=== PATIENT | female | born 1945 | race American Indian/Alaskan Native ===

== ENCOUNTER 2016-06-01 12:23 | Emergency (ER) | payer MEDICARE ==
[2016-06-01 12:41] VITALS: BP 96/58
--- NOTE | 2016-06-02 00:38 | ED Elopement Review ---
ED Pt Elopement review - Call Back decision Pt Call Back Decision: No action required
== END 2016-06-01 12:40 | disposition left against medical advice (07) ==
LOC: ED 12:23
DX: R07.9 Chest pain, unspecified (principal); Z53.21 Procedure and treatment not carried out due to patient leaving prior to being seen by health care provider
CPT/HCPCS: 93005; 93010

== ENCOUNTER 2016-09-07 11:32 | Inpatient (IN) | payer MEDICARE ==
[2016-09-07 13:17] LABS: Basophils % (Auto) 1.1 % (0.0-1.8); Eosinophils % (Auto) 1.2 % (0.0-4.3); Hematocrit 44.3 % (30.3-42.9); Hemoglobin 14.1 gm/dl (10.1-14.3); Mean Corpuscular HGB Conc 32 % (30-34); Mean Corpuscular Hemoglobin 31 pg (28-32); Mean Corpuscular Volume 99 fl (79-97); Platelet Count 236 K/mm3 (140-440); Red Blood Count 4.49 M/mm3 (3.65-5.03); Red Cell Distribution Width 18.9 % (13.2-15.2); White Blood Count 6.7 K/mm3 (4.5-11.0)
[2016-09-07 13:27] LABS: INR 0.97 (0.87-1.13)
--- NOTE | 2016-09-07 13:30 | XRay Report ---
Single view chest: Compared to 11/11/15. History: Hypotension. Findings: Normal cardiomediastinal silhouette. Trachea is midline. Scarring right lower lobe. No consolidation or pleural effusion. Impression: No acute lung changes. No interval change.
[2016-09-07 13:39] LABS: Creatine Kinase MB 1.6 ng/mL (0.0-4.0)
[2016-09-07 13:43] LABS: Alanine Aminotransferase 21 units/L (7-56); Albumin 4.4 g/dL (3.9-5); Albumin/Globulin Ratio 1.2 %; Alkaline Phosphatase 82 units/L (35-129)
[2016-09-07 13:44] LABS: Bilirubin,Direct < 0.2 mg/dL (0-0.2)
--- NOTE | 2016-09-07 13:52 | Admit Criteria Form ---
Admission Criteria Documentation: GENERAL ADMISSION CRITERIA (Place 'X' for any and all applicable criteria): Admission is indicated for ANY ONE of the following: [ X]I. Hemodynamic instability as indicated by ANY ONE of the following(1)(2 )(3)(4)(5): [X ]a) Vital sign abnormality not readily corrected by appropriate treatment within 12 to 24 hours indicated by ANY ONE of the following: [X ]i) Hypotension [ ]ii) Symptomatic Tachycardia unresponsive to treatment (eg , analgesia, fluids, sedation as indicated) [ ]iii) Orthostatic vital sign changes unresponsive to treatment (eg, fluids) [X ]b) Vital sign abnormality that is severe indicated by ANY ONE of the following: [X ]i) Inadequate perfusion indicated by ANY ONE of the following: [ X]1) Lactic acidosis (greater than 2 mmol/L) [ ]2) New abnormal capillary refill (greater than 3 seconds) [ ]3) Other metabolic acidosis (arterial pH less than 7.35) not otherwise explained [ ]4) Reduced urine output [ ]5) Altered mental status [ ]6) Myocardial Ischemia [ ]v) Mean arterial pressure[A] less than 60 mm Hg [ ]vi) Mean arterial pressure[A] less than 70 mm Hg after 30 minutes of appropriate treatment (eg, fluid resuscitation) [ ]vii) IV inotropic or vasopressor medication required to maintain adequate blood pressure or perfusion [ ]viii) Sustained heart rate greater than 120 beats per minute in adult or child 6 years or older[B]] [ ]II. Hypertension requiring inpatient treatment as indicated by ANY ONE of the following(6)(7)(8): [ ]a) SBP greater than 220 mm Hg or DBP greater than 120 mm Hg despite treatment [ ]b) SBP greater than 140 mm Hg or DBP greater than 100 mm Hg with evidence of acute end organ damage as indicated by ANY ONE of the following: [ ]i) Encephalopathy [ ]ii) Acute renal failure as indicated by new onset of ANY ONE of the following(9)(10)(11)(12)(13): [ ]1) A 3-fold rise in serum creatinine from baseline [ ]2) Serum creatinine greater than 4 mg/dL ( 354 micromoles/L) with acute rise greater than 0.5 mg/dL (44.2 micromoles/L) [ ]3) Reduction of more than 75% in estimated glomerular filtration rate from baseline [ ]4) Estimated glomerular filtration rate less than 35 mL/min/1.73m2 (0.59 mL/sec/1.73m2) in child up to 18 years of age [ ]5) Cessation of urine output indicated by ALL of the following: [ ]A. Adequate volume status [ ]B. Inadequate urine output as indicated by ANY ONE of the following: [ ]a. Urine output less than 0.3 mL/kg/hr for 24 hours [ ]b. Anuria (urine output less than 0.1 mL/kg/hr) for 12 hours [ ]iii) Aortic dissection [ ]iv) Myocardial ischemia [ ]v) Left ventricular heart failure [ ]vi) Retinal hemorrhage [ ]vii) Other significant finding [ ]c) Hypertension in child requiring inpatient treatment as indicated by ALL of the following(14)(15)(16): [ ]i) Outpatient treatment not effective, not available, or not appropriate [ ]ii) SBP or DBP greater than 95th percentile for age [ ]iii) Evidence of acute end organ damage as indicated by ANY ONE of the following: [ ]1) Altered mental status [ ]2) Acute renal failure as indicated by new onset of ANY ONE of the following(9)(10)(11)(12)(13): [ ]A. A 3-fold rise in serum creatinine from baseline [ ]B. Serum creatinine greater than 4 mg/dL (354 micromoles/L) with acute rise greater than 0.5 mg/dL (44.2 micromoles/L) [ ]C. Reduction of more than 75% in estimated glomerular filtration rate from baseline [ ]D. Estimated glomerular filtration rate less than 35 mL/min/1.73m2 (0.59 mL/sec/1.73m2)in child up to 18 years of age [ ]E. Cessation of urine output indicated by ALL of the following: [ ]a. Adequate volume status [ ]b. Inadequate urine output as indicated by ANY ONE of the following: [ ]1) Urine output less than 0.3 mL/kg/hr for 24 hours [ ]2) Anuria (urine output less than 0.1 mL/kg/hr) for 12 hours [ ]3) Severe headache [ ]4) Visual disturbance [ ]5) Retinal hemorrhage [ ]6) Other significant finding [ ]III. Acute cardiac or peripheral ischemia as indicated by ANY ONE of the following: [ ]a) Acute coronary syndrome(17)(18) [ ]b) Acute peripheral ischemia (eg, pulseless, cool, mottled, or cyanotic extremity)(19) [ ]IV. Cardiac arrhythmias or findings of immediate concern indicated by ANY ONE of the following(20)(21): [ ]a) Heart rhythms that are inherently dangerous or unstable indicated by ANY ONE of the following(22)(23)(24): [ ]i) Resuscitated ventricular fibrillation or cardiac arrest [ ]ii) Ventricular escape rhythm [ ]iii) Sustained ventricular tachycardia (30 seconds or more of ventricular rhythm at greater than 100 beats per minute) [ ]iv) Nonsustained ventricular tachycardia and ANY ONE of the following: [ ]1) Suspected cardiac ischemia as cause or consequence of ventricular tachycardia [ ]2) In setting of acute myocarditis [ ]b) Unstable cardiac conduction defects indicated by ANY ONE of the following(24)(25)(26): [ ]i) Type II second-degree atrioventricular block [ ]ii) Third-degree atrioventricular block [ ]iii) New-onset left bundle branch block with suspected myocardial ischemia [ ]c) Any heart rhythm and ANY ONE of the following(22)(23)(27)(28)( 29): [ ] i) Continuous long-term ECG monitoring needed (eg, initiation of drug requiring monitoring for more than 24 hours) [ ] ii) Patient has automatic implanted cardioverter defibrillator that is repeatedly firing, malfunctioning, or in need of immediate adjustment of settings beyond the scope of ambulatory or observation care. [ ]d) Heart rhythms of concern due to ANY ONE of the following: [ ]i) Hypotension [ ]ii) Respiratory distress [ ]iii) Association with other significant symptoms (eg, bradycardia with syncope or ongoing dizziness, supraventricular tachycardia with chest pain) (27)(28) (30) [ ] V. Severe heart failure as indicated by ANY ONE of the following ( 31)(32): [ ]a) Respiratory distress [ ]b) Hypotension [ ]c) Anasarca (refractory to outpatient therapy) [ ]d) Cardiac arrhythmias of immediate concern [ ]e) Myocardial ischemia [ ]. Respiratory abnormalities, including ANY ONE of the following(33)(34) (35)(36): [ ]a) Respiratory rate greater than 30 breaths per minute unresponsive to treatment [A] [ ]b) New saturation of arterial oxygen less than 90% [ ]c) New partial pressure of carbon dioxide greater than 44 mm Hg ( 5.9 kPa) [ ]d) Supplemental oxygen or respiratory treatments needed that are new or not performable at other levels of care [ ]e) New-onset cyanosis [ ]f) Inability to protect airway [ ]g) Chronic lung disease with severe deterioration (not responsive to emergency and observation care treatment as appropriate) as indicated by ANY ONE of the following(34)(36 ): [ ]i) SaO2 5% below baseline in patient with chronic hypoxemia [ ]ii) New requirement for supplemental oxygen to keep SaO2 at baseline or acceptable level [ ]iii) Required supplemental oxygen performable only in acute inpatient setting [ ]iv) Severe airflow or ventilation abnormalities [ ]v) Previously mobile patient unable to walk between rooms [ ]vi Inability to eat or sleep due to dyspnea [ ]vii) Rapid rate of exacerbation onset [ ]viii) Altered mental status ]VII. Severe airflow or ventilation abnormalities (not responsive to emergency and observation care treatment as appropriate) as indicated by ANY ONE of the following(33)(34)(35)(37): [ ]a) PCO2 greater than 42 mm Hg (5.6 kPa) and pH less than 7.35 (new ) [ ]b) Documented PCO2 increased more than 5 mm Hg (0.7 kPa) from disease baseline [ ]c) Airflow measurements [B] less than 60% of previous best or predicted (eg, peak expiratory flow rate less than 300 L/minute) despite intensive emergent treatment [C] [ ]d) Required respiratory treatments that are performable only in acute inpatient setting [ ]VIII. Impending or actual respiratory arrest ( Also use Respiratory Failure GRG for severe respiratory disease and long-term mechanical ventilation patients) [ ]IX. Neurologic abnormalities, including ANY ONE of the following: [ ]a) New findings that suggest ANY ONE of the following: [ ]i) SHAKER TENDER infection(38) [ ]ii) Cerebral bleeding, ischemia, or vasospasm(39)(40) [ ]iii) Increased intracranial pressure, hydrocephalus, or cerebral edema(41)(42)(43) [ ]iv) Spinal cord injury(44) [ ]b) Uncontrolled seizures(45) [ ]c) New-onset coma (eg, Ghazala coma scale score less than 9) or unexplained abnormal mental status (eg, Ghazala coma scale score less than 14) [D](41)(46)(47) [ ]X. New-onset severe neurologic findings requiring inpatient care; examples include(42)(48)(49): [ ]a) Papilledema [ ]b) Cerebral edema [ ]c) Mass effect on CT scan [ ]XI. Suspected acute intra-abdominal process with peritoneal signs, abdominal mass, or similar findings (50)(51)(52) [ ]XII. Severe physiologic disorder remaining after emergency or observation level care (as appropriate) as indicated by ANY ONE of the following (53): [ ]a) Significant dehydration [ ]b) Diabetic ketoacidosis [ ]c) Hyperglycemic hyperosmolar state (eg, osmolality greater than 320 mOsm/kg (mmol/kg) [ ]d) Hypoglycemia [ ]e) Other (new) acid-base disorder with pH less than 7.35 or greater than 7.5(54) [ ]f) Thyroid storm (55) [ ]g) Myxedema coma (55) [ ]XIII. Abdominal abnormalities with ANY ONE of the following(56)(57): [ ]a) Absent bowel sounds with complete ileus [ ]b) Signs of intestinal obstruction or peritonitis [E] [ ]c) Nausea and vomiting that cannot be controlled with outpatient or observation care [ ]XIV. Acute renal failure as indicated by new onset of ANY ONE of the following(9)(10)(11)(12)(13): [ ]a) A 3-fold rise in serum creatinine from baseline [ ]b) Serum creatinine greater than 4 mg/dL (354 micromoles/L) with acute rise greater than 0.5 mg/dL (44.2 micromoles/L) [ ]c) Reduction of more than 75% in estimated glomerular filtration rate from baseline [ ]d) Estimated glomerular filtration rate less than 35 mL/min/ 1.73m2 (0.59 mL/sec/1.73m2) in child up to 18 years of age [ ]e) Cessation of urine output indicated by ALL of the following: [ ]i) Adequate volume status [ ]ii) Inadequate urine output as indicated by ANY ONE of the following: [ ]1) Urine output less than 0.3 mL/kg/hr for 24 hours [ ]2) Anuria (urine output less than 0.1 mL/kg/hr) for 12 hours [ ]XV. Significant uremic complications as indicated by ANY ONE of the following(58)(59)(60): [ ]a) Outpatient therapy is ineffective or not feasible for ANY ONE of the following: [ ]i) Severe heart failure [ ]ii) Severehypertension [ ]iii) Pleural effusion [ ]iv) Pericarditis or pericardial effusion [ ]b) Cardiac arrhythmias of immediate concern [ ]c) Intractable nausea or vomiting [ ]d) Recurrent seizures [ ]e) Encephalopathy [ ]f) Bleeding abnormalities (eg, platelet dysfunction) with active (eg, gastrointestinal) bleeding [ ]g) Dialysis indicated before long-term access or ambulatory arrangements can be made [ ]h) Significant metabolic or electrolyte abnormalities (eg, severe acidosis or hyperkalemia) [ ]XVI. High fever or other high-risk infection situation as indicated by ANY ONE of the following(61)(62)(63)(64): [ ]a) Outpatient and observation care antimicrobial treatment unavailable, not effective, or not appropriate [ ]b) Documented bacteremia [ ]c) Temperature greater than 40.5 degrees C (104.9 degrees F) ( oral) [ ]d) Temperature greater than 39.5 degrees C (103.1 degrees F) ( oral) or less than 36 degrees C (96.8 degrees F) (rectal) that does not respond to e treatment and observation care [ ] XVII. Temperature less than 95 degrees F (35 degrees C)(rectal)(65) [ ] XVIII. Severe nutritional abnormalities as indicated by ALL of the following (66)(67): [ ]a) Inability to tolerate or establish sufficient oral or other enteral nutrition in outpatient setting [ ]b) Parenteral nutrition regimen need that must be implemented on inpatient basis [ ] XIX. Severe electrolyte abnormalities indicated by ALL of the following(68) (69)(70): [ ]a) Electrolytes and associated findings are not as expected for patient baseline or acceptable treatment effects. [ ]b) Severe abnormalities indicated by ANY ONE of the following: [ ]i) Sodium less than 130 mEq/L (mmol/L) (new) [ ]ii)Sodium less than 135 mEq/L (mmol/L) with ANY ONE of the following: [ ]1) Uncorrectable (to near normal or chronic baseline) after trial of outpatient and emergency treatment [ ]2) Altered mental status [ ]3) Seizures [ ]4) Severe medical etiology requiring inpatient management (eg, heart failure, hypovolemia) [ ]iii) Sodium greater than 155 mEq/L (mmol/L) [ ]iv) Sodium greater than 150 mEq/L (mmol/L) with ANY ONE of the following: [ ]1) Uncorrectable (to near normal or chronic baseline) with outpatient and emergency treatment [ ]2) Altered mental status [ ]3) Seizures [ ]4) Severe medical etiology (eg, hypovolemia, diabetes insipidus) [ ]v) Potassium less than 2.5 mEq/L (mmol/L) despite outpatient and emergency treatment [ ]vi) Potassium less than 3 mEq/L (mmol/L) with ANY ONE of the following: [ ]1) Weakness [ ]2) Cardiac abnormality (eg, arrhythmia, conduction disturbance) [ ]3) Cardiac ischemia [ ]4) Ileus [ ]5) Ongoing medical cause requiring inpatient management (eg, acute renal wasting or SIADH) [ ]6) Other severe symptoms [ ]vii) Potassium greater than 6.5 mEq/L (mmol/L) [ ]viii) Potassium greater than 5 mEq/L (mmol/L) with ANY ONE of the following: [ ]1) Uncorrectable (to near normal or chronic baseline) with outpatient and emergency treatment [ ]2) Severe ECG findings [F] [ ]3) Acute worsening of renal failure (creatinine greater than 2.5 mg/dL (221 micromoles/L) or significant elevation for age and size) [ ]4) Severe weakness [ ]5) Severe medical etiology (eg, hemolysis, infection, drug overdose) [ ]ix) Calcium less than 7 mg/dL (1.75 mmol/L) despite outpatient and emergency treatment (72) [ ]x) Calcium less than 8 mg/dL (2 mmol/L) with significant symptoms or findings; examples include(72): [ ]1) Altered mental status [ ]2) Muscle spasms [ ]3) Seizures [ ]4) Breathing difficulty [ ]5) Cardiac abnormality (eg, arrhythmia or conduction disturbance) [ ]xi) Calcium greater than 14 mg/dL (3.5 mmol/L)(72) [ ]xii) Calcium greater than 12 mg/dL (3 mmol/L) with ANY ONE of the following(72): [ ]1) Uncorrectable (to near normal or chronic baseline) with outpatient and emergency treatment [ ]2) Significant dehydration or hypovolemia as indicated by ALL of the following(70)(73)(74): [ ]A. Not resolved with initial treatments [ ]B. Clinically significant dehydration as indicated by ANY ONE of the following: [ ]a. Vomiting refractory to outpatient treatment (ie, precluding oral rehydration) [ ]b. Inability to drink [ ]c. Hypernatremia or other electrolyte abnormality unable to be corrected with outpatient and emergency treatment [ ]d. Failure to remain hydrated with outpatient therapy [ ]e. Reduced urine output [ ]f. Hypotension [ ]g. Serious cause for dehydration requiring acute hospitalization (eg, bowel obstruction, increased intracranial pressure, infectious cause) [ ]h. Child with ANY ONE of the following(75): [ ]1) Severe abdominal tenderness [ ]2) Adequate care not available at home [ ]3) Severe dehydration ( greater than 9% loss of body weight) [ ]4) Significant symptoms or findings; examples include: [ ]A. Altered mental status [ ]B. Cardiac abnormality (eg, arrhythmia, conduction disturbance) [ ]C. Malignant etiology requiring inpatient treatment [ ]xiii) Phosphorus less than 1 mg/dL (0.32 mmol/L) [ ]xiv) Phosphorus less than 1.5 mg/dL (0.48 mmol/L) with ANY ONE of the following: [ ]1) Patient unresponsive to outpatient and emergency treatment [ ]2) Significant symptoms or findings; examples include: [ ]A. Weakness [ ]B. Altered mental status [ ]C. Breathing difficulty [ ]D. Seizures [ ]E. Rhabdomyolysis [ ]xv) Phosphorus greater than 10 mg/dL (3.2 mmol/L) [ ]xvi) Phosphorus greater than 4.5 mg/dL (1.45 mmol/L) (new) with ANY ONE of the following: [ ]1) Severe medical etiology (eg, crush injury, acute renal failure) [ ]2) Associated hypocalcemia with significant findings; examples include: [ ]A. Neurologic symptoms [ ]B. Altered mental status [ ]C. Muscle spasms [ ]D. Seizures [ ]E. Breathing difficulty [ ]F. Cardiac abnormality (eg, arrhythmia, conduction disturbance) [ ]xvii) Magnesium less than 1 mg/dL (0.41 mmol/L) [ ]xviii) Magnesium less than 1.5 mg/dL (0.62 mmol/L) with ANY ONE of the following: [ ]1) Patient unresponsive to outpatient and emergency treatment [ ]2) Associated hypocalcemia with significant findings; examples include: [ ]A. Altered mental status [ ]B. Muscle spasms [ ]C. Seizures [ ]D. Breathing difficulty [ ]E. Cardiac abnormality (eg, arrhythmia , conduction disturbance) [ ]3) Associated hypokalemia (potassium less than 3 mEq/L (mmol/L)) with risk of arrhythmia [ ]xix) Magnesium greater than 4 mEq/L (2 mmol/L) [ ]xx) Magnesium greater than 2.5 mEq/L (1.25 mmol/L) with significant symptoms or findings; examples include: [ ]1) Weakness [ ]2) Altered mental status [ ]3) Cardiac abnormality (eg, arrhythmia, conduction disturbance) [ ]4) Breathing difficulty [ ]5) Severe medical etiology (eg, renal failure, hypovolemia) [ ]xxi) Uric acid greater than 20 mg/dL (1190 micromoles/L)(76) [ ]xxii) Uric acid greater than 8 mg/dL (476 micromoles/L) with significant symptoms or findings of tumor lysis syndrome; examples include(76): [ ]1) Creatinine greater than 1.5 times upper limit of normal [ ]2) Cardiac abnormality (eg, arrhythmia, conduction disturbance) [ ]3) Seizure [ ]XX. Acute blood loss causing significant abnormality as indicated by ANY ONE of the following(77)(78): [ ]a) Hemoglobin less than 10 g/dL (100 g/L) (not baseline) [ ]b) Hematocrit less than 30% (0.30) (not baseline) [ ]c) Repeat hematocrit decreased more than 2% (0.02) [ ]d) Uncontrolled bleeding [ ]XXI. Severe anemia indicated by ANY ONE of the following(78)(79): [ ]a) Altered mental status [ ]b) Chest pain [ ]c) Exertional dyspnea [ ]d) Syncope [ ]e) Other findings suggesting inadequate perfusion [ ]f) Treatment with transfusion or volume replacement is ineffective at resolving ANY ONE of the following [G]: [ ]i) Tachycardia for age [ ]ii) Orthostatic vital sign changes as indicated by ANY ONE of the following(80): [ ]1) Fall in SBP of 20 mm Hg or more 1 to 3 minutes after patient sits or stands from recumbent position [ ]2) Fall in DBP of 10 mm Hg or more 1 to 3 minutes after patient sits or stands from recumbent position [ ]XXII. High-risk low platelet count as indicated by ANY ONE of the following( 81)(82): [ ]a) Severe or life-threatening bleeding (eg, intracranial, major gastrointestinal, or extensive mucosal bleeding), with any reduced platelet count [ ]b) Platelet count less than 20,000/mm3 (20 x109/L) with any active bleeding [ ]c) Platelet count less than 10,000/mm3 (10 x109/L) with minor purpura or petechiae [ ]d) Platelet count less than 5000/mm3 (5 x109/L) [ ]e) Low platelet count with hemolytic anemia [ ]XXIII. Disseminated intravascular coagulation(77)(83) [ ]XXIV. Severe adverse drug or systemic toxin reaction requiring inpatient treatment; examples include(84)(85): [ ]a) Serotonin syndrome(86) [ ]b) Neuroleptic malignant syndrome(86) [ ]c) Cholinergic syndrome with severe symptoms (eg, bronchorrhea, weakness, mental status changes, seizures) [ ]d) Sympathetic syndrome with severe symptoms (eg, seizures, mental status changes, cardiac dysrhythmias) [ ]e) Anticholinergic syndrome [ ]XXV. Severe pain requiring acute inpatient management as indicated by ALL of the following (87)(88)(89): [ ]a) Continuous or frequent (eg, every 2 to 4 hours) parenteral analgesics required [H] [ ]b) Rapid improvement expected from treatment or acute intervention (eg, surgery, anesthesia procedure) [ ]XXVI.Severe behavioral health issues judged unmanageable at a lower level of care (eg, residential) in a patient who is ANY ONE of the following(91) [ ]a) Acutely suicidal [ ]b) A danger to self (eg, self-mutilating or suicidal behavior) [ ]c) A danger to others (eg, assaultive or homicidal behavior) [ ]d) Incapacitated because of grave disability (eg, inability to provide for self at lower level of care) (92) [ ]XXVII. Inpatient monitoring needed; examples include(1)(3)(87)(93)(94)(95)(96 ): [ ]a) Vital signs, neurologic signs, or vascular checks more frequently than every 4 hours [ ]b) Cardiac or respiratory monitoring beyond the scope (eg, over 24 hours) of observation care [ ]c) Pulmonary artery catheter monitoring [ ]d) Suspected compartment syndrome(97) (98) [ ]e) Cerebral bleeding, hydrocephalus, or vasospasm monitoring [ ]f) Increased intracranial pressure or cerebral edema monitoring [ ]g) monitoring [ ]XXVIII. Treatment requiring inpatient care; examples include: [ ]a) IV fluid to replace significant ongoing losses (greater than 3 L/m2 per day)(53) [ ]b) High concentration oxygen (greater than 40%)(33)(99)(100) [ ]c) Frequent respiratory therapy (more frequently than every 4 hours) to maintain airflow rates greater than 60% of baseline(33)(99)(100) [ ]d) Epidural analgesia(87) [ ]e) IV anticoagulation, vasoactive, or antiarrhythmic medication(19 )(23) [ ]f) Acute thrombolytics (generally require 24 hours of observation )(101)(102) [ ]XXIX. Emergency procedures needed; examples include: [ ]a) Emergency inpatient surgery [ ]b) Temporary pacemaker placement(103) [ ]c) Chest tube placement with active evacuation (eg, suction, drainage)(104) [ ]d) Emergent cardioversion(105) [ ]e) Emergent cardiac or vascular procedures (eg, cardiac catheterization, angioplasty) (17)(18) [ ]f) Emergent dialysis access placement and institution(10)(106) [ ]g) Emergent pericardiocentesis(107) [ ]h) Emergent plasmapheresis or leukapheresis(83) [ ]i) Emergent tracheostomy The original [employer] content created by [employer] has been revised. The portions of the content which have been revised are identified through the use of italic text or in bold, and [facility] has neither reviewed nor approved the modified material. All other unmodified content is copyright [employer]. Please see references footnoted in the original [employer] edition 2016 Admission Criteria Met: Yes
[2016-09-07 14:02] LABS: BUN/Creatinine Ratio 4.83; Calcium 8.9 mg/dL (8.4-10.2)
[2016-09-07 14:22] LABS: Chloride 83.8 mmol/L (98-107); Potassium 3.5 mmol/L (3.6-5.0)
[2016-09-07] MEDS ORDERED: SODIUM BICARBONATE IV ONE (14:58)
--- NOTE | 2016-09-07 15:07 | Emergency Department Report ---
ED General Adult HPI - General Chief complaint: Chest Pain Stated complaint: STEMI Time Seen by Provider: 09/07/16 11:39 Source: patient, EMS Mode of arrival: Stretcher Limitations: Other - History of Present Illness Initial comments: The patient was sent from the dialysis clinic for evaluation of hypotension. Today is her routine dialysis today. She presented to the clinic she states without any symptoms of illness. She denies weakness, dizziness or any type of orthostasis. She denies fever or chills. She states that her blood pressure is usually low. She has a history of an ileostomy due to ulcerative colitis many years ago. Otherwise she denies any ongoing medical problems other than her chronic kidney disease. She does not know precisely what caused her kidney failure. She is not taking any medicines at all she states. -: hour(s) Severity scale (0 -10): 0 - Related Data Home Medications Medication Instructions Recorded Confirmed Last Taken Calcium Acetate 2,001 mg PO TID 09/07/16 09/07/16 Unknown Ferrous Sulfate [Feosol] 325 mg PO BID 09/07/16 09/07/16 Unknown Potassium Chloride [Klor-Con] 20 meq PO DAILY 09/07/16 09/07/16 Unknown traZODone [Desyrel] 50 mg PO QHS 09/07/16 09/07/16 Unknown Previous Rx's Medication Instructions Recorded Last Taken Type Cholecalciferol Vit D3 [Vitamin D3] 1,000 unit PO DAILY #30 tablet 11/25/15 Unknown Rx Fludrocortisone [Florinef] 0.1 mg PO BID #60 tablet 11/25/15 Unknown Rx Midodrine [Proamatine] 10 mg PO BID #60 mo 11/25/15 Unknown Rx Allergies Allergy/AdvReac Type Severity Reaction Status Date / Time Barbiturates Allergy Hives Verified 11/22/15 18:22 Iodine and Iodide Containing Allergy Hives Verified 11/22/15 18:22 Produc cosmo Allergy Swelling Verified 11/22/15 18:22 penicillin Allergy Swelling Verified 11/22/15 18:22 HORSES Allergy Swelling Uncoded 11/22/15 18:22 CATS AdvReac Unknown Uncoded 11/22/15 18:22 ED Review of Systems ROS: Stated complaint: STEMI Other details as noted in HPI Constitutional: denies: chills, fever Eyes: denies: eye pain, eye discharge, vision change ENT: denies: ear pain, throat pain Respiratory: denies: cough, shortness of breath, wheezing Cardiovascular: denies: chest pain, palpitations Endocrine: no symptoms reported Gastrointestinal: denies: abdominal pain, nausea, diarrhea Genitourinary: denies: urgency, dysuria, discharge Musculoskeletal: denies: back pain, joint swelling, arthralgia Skin: denies: rash, lesions Neurological: denies: headache, weakness, paresthesias Psychiatric: denies: anxiety, depression Hematological/Lymphatic: denies: easy bleeding, easy bruising ED Past Medical Hx - Past Medical History Hx Hypertension: Yes Hx Congestive Heart Failure: Yes Hx Renal Disease: Yes Hx Kidney Stones: Yes Hx Asthma: Yes Hx COPD: Yes Hx HIV: No Additional medical history: ileostomy, Crohn's versus ulcerative colitis, hypotension - Surgical History Past Surgical History?: Yes Additional Surgical History: ileostomy - Social History Smoking Status: Never Smoker Substance Use Type: None - Medications Home Medications: Home Medications Medication Instructions Recorded Confirmed Last Taken Type Cholecalciferol Vit D3 [Vitamin D3] 1,000 unit PO DAILY #30 tablet 11/25/1505/22 Unknown Rx Fludrocortisone [Florinef] 0.1 mg PO BID #60 tablet 11/25/15 09/07/16 Unknown Rx Midodrine [Proamatine] 10 mg PO BID #60 mo 11/25/15 09/07/16 Unknown Rx Calcium Acetate 2,001 mg PO TID 09/07/16 09/07/16 Unknown History Ferrous Sulfate [Feosol] 325 mg PO BID 09/07/16 09/07/16 Unknown History Potassium Chloride [Klor-Con] 20 meq PO DAILY 09/07/16 09/07/16 Unknown History traZODone [Desyrel] 50 mg PO QHS 09/07/16 09/07/16 Unknown History ED Physical Exam - General Limitations: Other General appearance: alert, in no apparent distress - Head Head exam: Present: atraumatic, normocephalic - Eye Eye exam: Present: normal appearance, other (conjunctiva did appear somewhat pale). Absent: scleral icterus - ENT ENT exam: Present: mucous membranes moist - Neck Neck exam: Present: normal inspection - Respiratory Respiratory exam: Present: normal lung sounds bilaterally. Absent: respiratory distress - Cardiovascular Cardiovascular Exam: Present: regular rate, normal rhythm. Absent: systolic murmur, diastolic murmur, rubs, gallop - GI/Abdominal GI/Abdominal exam: Present: soft, normal bowel sounds. Absent: distended, tenderness, guarding, rebound, rigid - Extremities Exam Extremities exam: Present: normal inspection, other (extremities are warm and pulses are present) - Back Exam Back exam: Present: normal inspection - Neurological Exam Neurological exam: Present: alert, oriented X3, CN II-XII intact. Absent: motor sensory deficit - Psychiatric Psychiatric exam: Present: normal affect, normal mood - Skin Skin exam: Present: warm, dry, intact, normal color. Absent: rash ED Course Vital Signs 09/07/16 09/07/16 09/07/16 11:37 11:41 11:44 Temperature 98.2 F Pulse Rate 84 92 H Respiratory 18 16 Rate Blood Pressure 69/48 Blood Pressure 69/48 [Right] O2 Sat by Pulse 98 97 98 Oximetry 09/07/16 09/07/16 09/07/16 11:51 12:00 12:08 Temperature Pulse Rate 93 H 88 Respiratory 23 16 18 Rate Blood Pressure 88/45 89/50 Blood Pressure [Right] O2 Sat by Pulse 99 97 Oximetry 09/07/16 14:20 Temperature Pulse Rate 86 Respiratory 16 Rate Blood Pressure Blood Pressure 90/50 [Right] O2 Sat by Pulse 99 Oximetry - Reevaluation(s) Reevaluation #1: 09/07/16 15:45 Patient was given aliquots of normal saline. I did find that her blood pressure was higher in her leg than her arm. Measured in her leg 89 systolic and in her arm 69 systolic. The patient was found to have a significant metabolic acidosis and hyponatremia. She was additionally given one amp of bicarbonate. Her chest x- ray was dry. She is given additional saline. On reexamination the patient remains completely asymptomatic. Her case has been reviewed with Dr. Conde who will be admitting her to the hospitalist service. A consult was called with Dr. Sales. ED Medical Decision Making - Lab Data Result diagrams: 09/07/16 12:51 09/07/16 14:49 Laboratory Results - last 24 hr 09/07/16 09/07/16 09/07/16 12:30 12:51 12:51 WBC 6.7 RBC 4.49 Hgb 14.1 Hct 44.3 H MCV 99 H MCH 31 MCHC 32 RDW 18.9 H Plt Count 236 Lymph % (Auto) 20.3 Bent % (Auto) 4.7 Eos % (Auto) 1.2 Baso % (Auto) 1.1 Lymph # 1.4 Bent # 0.3 Eos # 0.1 Baso # 0.1 Seg Neutrophils % 72.7 H Seg Neutrophils # 4.9 PT INR APTT Sodium 129 L Potassium 3.5 L Chloride 83.8 L Carbon Dioxide 11 L Anion Gap 38 BUN 57 H Creatinine 11.8 H Estimated GFR 4 BUN/Creatinine Ratio 4.83 Glucose 89 Lactic Acid Calcium 8.9 Phosphorus Total Bilirubin Direct Bilirubin AST ALT Alkaline Phosphatase Total Creatine Kinase CK-MB (CK-2) CK-MB (CK-2) Rel Index Troponin T 0.031 H NT-Pro-B Natriuret Pep Total Protein Albumin Albumin/Globulin Ratio Triglycerides 170 H Cholesterol 166 LDL Cholesterol Direct 62 HDL Cholesterol 70 H Cholesterol/HDL Ratio 2.37 Blood Type B POSITIVE Antibody Screen TNR BOBBY Antibody Screen Negative 09/07/16 09/07/16 09/07/16 12:51 12:51 12:51 WBC RBC Hgb Hct MCV MCH MCHC RDW Plt Count Lymph % (Auto) Bent % (Auto) Eos % (Auto) Baso % (Auto) Lymph # Bent # Eos # Baso # Seg Neutrophils % Seg Neutrophils # PT 12.8 INR 0.97 APTT 32.0 Sodium Potassium Chloride Carbon Dioxide Anion Gap BUN Creatinine Estimated GFR BUN/Creatinine Ratio Glucose Lactic Acid 2.50 H* Calcium Phosphorus Total Bilirubin 0.30 Direct Bilirubin < 0.2 AST 23 ALT 21 Alkaline Phosphatase 82 Total Creatine Kinase CK-MB (CK-2) CK-MB (CK-2) Rel Index Troponin T NT-Pro-B Natriuret Pep 639.4 Total Protein 8.0 Albumin 4.4 Albumin/Globulin Ratio 1.2 Triglycerides Cholesterol LDL Cholesterol Direct HDL Cholesterol Cholesterol/HDL Ratio Blood Type Antibody Screen BOBBY Antibody Screen 09/07/16 09/07/16 09/07/16 12:51 14:49 14:49 WBC RBC Hgb Hct MCV MCH MCHC RDW Plt Count Lymph % (Auto) Bent % (Auto) Eos % (Auto) Baso % (Auto) Lymph # Bent # Eos # Baso # Seg Neutrophils % Seg Neutrophils # PT INR APTT Sodium 131 L Potassium 3.1 L Chloride 86.1 L Carbon Dioxide 16 L Anion Gap 32 BUN 58 H Creatinine 12.2 H Estimated GFR 4 BUN/Creatinine Ratio 4.75 Glucose 109 H Lactic Acid Calcium 8.8 Phosphorus 9.70 H Total Bilirubin Direct Bilirubin AST ALT Alkaline Phosphatase Total Creatine Kinase 41 CK-MB (CK-2) 1.6 CK-MB (CK-2) Rel Index 3.9 Troponin T 0.032 H NT-Pro-B Natriuret Pep Total Protein Albumin Albumin/Globulin Ratio Triglycerides Cholesterol LDL Cholesterol Direct HDL Cholesterol Cholesterol/HDL Ratio Blood Type Antibody Screen BOBBY Antibody Screen - EKG Data EKG shows normal: sinus rhythm, axis, intervals, QRS complexes Rate: normal - EKG Data Interpretation: other (there is J-point elevation in the inferolateral leads. There is no evidence of reciprocal changes. This EKG is somewhat variable but it is not consistent with STEMI.) - Radiology Data interpreted by me: Chest x-ray shows no acute process Critical Care Time: Yes Critical care time in (mins) excluding proc time.: 45 Critical care attestation.: If time is entered above; I have spent that time in minutes in the direct care of this critically ill patient, excluding procedure time. ED Disposition Clinical Impression: Metabolic acidosis, Encounter for hemodialysis, End-stage renal disease on hemodialysis, Ileostomy in place Hypotension Qualifiers: Hypotension type: unspecified hypotension type Qualified Code(s): I95.9 - Hypotension, unspecified Disposition: OP ADMIT IP TO THIS HOSP Is pt being admited?: Yes Condition: Stable Referrals: PRIMARY CARE, [Primary Care Provider] - 3-5 Days
[2016-09-07 15:21] LABS: BUN/Creatinine Ratio 4.75; Calcium 8.8 mg/dL (8.4-10.2); Chloride 86.1 mmol/L (98-107); Phosphorous 9.7 mg/dL (2.5-4.5); Potassium 3.1 mmol/L (3.6-5.0)
[2016-09-07] MEDS ORDERED: NACL 0.9% 250ML 250 ML IV ONE (15:40)
[2016-09-07] MEDS ORDERED: K-DUR PO ONE ×2 (15:47→16:41)
[2016-09-07] MEDS ORDERED: NACL 0.9% 250ML 250 ML ONE (17:02)
--- NOTE | 2016-09-07 19:48 | Consultation ---
History of Present Illness - Reason for Consult Consult date: 09/07/16 end stage renal disease - History of Present Illness Mrs. Heller is a 70yo with ESRD on HD MWF who presented to the ED due to hypotension. She has a history of chronic hypotension. However, upon arriving to her outpatient dialysis clinic, pre treatment vitals were notable for BP 67/ 45. She was sent to the ED for evaluation. She has no complaints at present. Medications reviewed, and she reports that she has not taken Midodrine or Florinef in some time. Past History Past Medical History: ESRD, other (chronic hypotension, Shy Drager, Crohn's disease s/p colectomy) Past Surgical History: Other (Colectomy; ileostomy; right partial nephrectomy) Social history: no significant social history Family history: no significant family history Medications and Allergies Allergies Allergy/AdvReac Type Severity Reaction Status Date / Time Barbiturates Allergy Hives Verified 11/22/15 18:22 Iodine and Iodide Containing Allergy Hives Verified 11/22/15 18:22 Produc cosmo Allergy Swelling Verified 11/22/15 18:22 penicillin Allergy Swelling Verified 11/22/15 18:22 HORSES Allergy Swelling Uncoded 11/22/15 18:22 CATS AdvReac Unknown Uncoded 11/22/15 18:22 Home Medications Medication Instructions Recorded Confirmed Last Taken Type Cholecalciferol Vit D3 [Vitamin D3] 1,000 unit PO DAILY #30 tablet 11/25/1505/22 Unknown Rx Fludrocortisone [Florinef] 0.1 mg PO BID #60 tablet 11/25/15 09/07/16 Unknown Rx Midodrine [Proamatine] 10 mg PO BID #60 mo 11/25/15 09/07/16 Unknown Rx Calcium Acetate 2,001 mg PO TID 09/07/16 09/07/16 Unknown History Ferrous Sulfate [Feosol] 325 mg PO BID 09/07/16 09/07/16 Unknown History Potassium Chloride [Klor-Con] 20 meq PO DAILY 09/07/16 09/07/16 Unknown History traZODone [Desyrel] 50 mg PO QHS 09/07/16 09/07/16 Unknown History Exam - Vital Signs Vital signs: Vital Signs Pulse Ox 98 09/07/16 11:37 - General Appearance General appearance: chronically ill, frail EENT: ATNC Respiratory: Clear to Ascultation Heart: regular, S1S2 Gastrointestinal: Absent: tenderness Integumentary: no rash Neurologic: alert and oriented x3 Musculoskeletal: Present: other (no edema) Psychiatric: cooperative Results - Lab Results 09/07/16 12:51 09/07/16 14:49 Most recent lab results Calcium 8.8 mg/dL (8.4-10.2) 09/07/16 14:49 Phosphorus 9.70 mg/dL (2.5-4.5) H 09/07/16 14:49 Assessment and Plan Impression * End-stage renal disease on maintenance hemodialysis * Metabolic acidosis * Hypokalemia * Chronic hypotension * History of renal cell cancer s/p partial nephrectomy Recommendations * Will hold HD today as patient with hypotension SBP 60s * Hemodiaylsis tomorrow pending improved hemodynamic stability - no UF * Resume home meds: Florinef, Midodrine, PhosLo and KDur * Dose medications for renal function * Epogen goal 10-12 * Lucille prn patient request - 5mg ordered
[2016-09-07] MEDS ORDERED: NACL 0.9% 100 ML IV PRN (20:07)
[2016-09-07] MEDS ORDERED: AMBIEN PO PRN (21:09)
[2016-09-07] MEDS: SODIUM BICARBONATE PO SCH (22:38)
[2016-09-07] MEDS: PROAMATINE PO SCH (22:39)
[2016-09-07] MEDS: FLORINEF PO SCH (22:42)
--- NOTE | 2016-09-08 03:23 | History and Physical Report ---
History of Present Illness Date of examination: 09/07/16 Date of admission: 09/07/16 15:23 Chief complaint: 09/07/16 History of present illness: The patient was sent from the dialysis clinic for evaluation of hypotension. Pam takes Midodrine to keep her BP up and also Florinef.Today is her routine dialysis today. She presented to the clinic she states without any symptoms of illness. She denies weakness, dizziness or any type of orthostasis. She denies fever or chills. She states that her blood pressure is usually low. She has a history of an ileostomy due to ulcerative colitis many years ago. Otherwise she denies any ongoing medical problems other than her chronic kidney disease. She does not know precisely what caused her kidney failure. She is not taking any medicines at all she states. -: hour(s) Severity scale (0 -10): 0 - Related Data Home Medications Medication Instructions Recorded Confirmed Last Taken Calcium Acetate 2,001 mg PO TID 09/07/16 09/07/16 Unknown Ferrous Sulfate [Feosol] 325 mg PO BID 09/07/16 09/07/16 Unknown Potassium Chloride [Klor-Con] 20 meq PO DAILY 09/07/16 09/07/16 Unknown traZODone [Desyrel] 50 mg PO QHS 09/07/16 09/07/16 Unknown Previous Rx's Medication Instructions Recorded Last Taken Type Cholecalciferol Vit D3 [Vitamin D3] 1,000 unit PO DAILY #30 tablet 11/25/15 Unknown Rx Fludrocortisone [Florinef] 0.1 mg PO BID #60 tablet 11/25/15 Unknown Rx Midodrine [Proamatine] 10 mg PO BID #60 mo 11/25/15 Unknown Rx Allergies Allergy/AdvReac Type Severity Reaction Status Date / Time Barbiturates Allergy Hives Verified 11/22/15 18:22 Iodine and Iodide Containing Allergy Hives Verified 11/22/15 18:22 Produc cosmo Allergy Swelling Verified 11/22/15 18:22 penicillin Allergy Swelling Verified 11/22/15 18:22 HORSES Allergy Swelling Uncoded 11/22/15 18:22 CATS AdvReac Unknown Uncoded 11/22/15 18:22 ED Review of Systems ROS: Stated complaint: STEMI Other details as noted in HPI Constitutional: denies: chills, fever Eyes: denies: eye pain, eye discharge, vision change ENT: denies: ear pain, throat pain Respiratory: denies: cough, shortness of breath, wheezing Cardiovascular: denies: chest pain, palpitations Endocrine: no symptoms reported Gastrointestinal: denies: abdominal pain, nausea, diarrhea Genitourinary: denies: urgency, dysuria, discharge Musculoskeletal: denies: back pain, joint swelling, arthralgia Skin: denies: rash, lesions Neurological: denies: headache, weakness, paresthesias Psychiatric: denies: anxiety, depression Hematological/Lymphatic: denies: easy bleeding, easy bruising ED Past Medical Hx - Past Medical History Hx Hypertension: Yes Hx Congestive Heart Failure: Yes Hx Renal Disease: Yes Hx Kidney Stones: Yes Hx Asthma: Yes Hx COPD: Yes Hx HIV: No Additional medical history: ileostomy, Crohn's versus ulcerative colitis, hypotension - Surgical History Past Surgical History?: Yes Additional Surgical History: ileostomy - Social History Smoking Status: Never Smoker Substance Use Type: None - Medications Home Medications: Home Medications Medication Instructions Recorded Confirmed Last Taken Type Cholecalciferol Vit D3 [Vitamin D3] 1,000 unit PO DAILY #30 tablet 11/25/1505/22 Unknown Rx Fludrocortisone [Florinef] 0.1 mg PO BID #60 tablet 11/25/15 09/07/16 Unknown Rx Midodrine [Proamatine] 10 mg PO BID #60 mo 11/25/15 09/07/16 Unknown Rx Calcium Acetate 2,001 mg PO TID 09/07/16 09/07/16 Unknown History Ferrous Sulfate [Feosol] 325 mg PO BID 09/07/16 09/07/16 Unknown History Potassium Chloride [Klor-Con] 20 meq PO DAILY 09/07/16 09/07/16 Unknown History traZODone [Desyrel] 50 mg PO QHS 09/07/16 09/07/16 Unknown History Past History Past Medical History: ESRD, other (chronic hypotension, Shy Drager, Crohn's disease s/p colectomy) Past Surgical History: Other (Colectomy; ileostomy; right partial nephrectomy) Social history: no significant social history Family history: no significant family history Medications and Allergies Allergies Allergy/AdvReac Type Severity Reaction Status Date / Time Barbiturates Allergy Hives Verified 11/22/15 18:22 Iodine and Iodide Containing Allergy Hives Verified 11/22/15 18:22 Produc cosmo Allergy Swelling Verified 11/22/15 18:22 penicillin Allergy Swelling Verified 11/22/15 18:22 HORSES Allergy Swelling Uncoded 11/22/15 18:22 CATS AdvReac Unknown Uncoded 11/22/15 18:22 Home Medications Medication Instructions Recorded Confirmed Last Taken Type Cholecalciferol Vit D3 [Vitamin D3] 1,000 unit PO DAILY #30 tablet 11/25/1505/22 Unknown Rx Fludrocortisone [Florinef] 0.1 mg PO BID #60 tablet 11/25/15 09/07/16 Unknown Rx Midodrine [Proamatine] 10 mg PO BID #60 mo 11/25/15 09/07/16 Unknown Rx Calcium Acetate 2,001 mg PO TID 09/07/16 09/07/16 Unknown History Ferrous Sulfate [Feosol] 325 mg PO BID 09/07/16 09/07/16 Unknown History Potassium Chloride [Klor-Con] 20 meq PO DAILY 09/07/16 09/07/16 Unknown History traZODone [Desyrel] 50 mg PO QHS 09/07/16 09/07/16 Unknown History Active Meds: Active Medications Calcium Acetate (Phoslo) 2,001 mg PO TID [facility] Fludrocortisone Acetate (Florinef) 0.1 mg PO BID [facility] Last Admin: 09/07/16 22:42 Dose: 0.1 mg Sodium Chloride (Nacl 0.9%) 100 mls @ 999 mls/hr IV PHAN PRN PRN Reason: Hypotension Midodrine (Proamatine) 10 mg PO BID [facility] Last Admin: 09/07/16 22:39 Dose: 10 mg Potassium Chloride (K-Dur) 20 meq PO QDAY [facility] Sodium Bicarbonate (Sodium Bicarbonate) 650 mg PO BID [facility] Last Admin: 09/07/16 22:38 Dose: 650 mg Zolpidem Tartrate (Ambien) 5 mg PO QHS PRN PRN Reason: Sleep Last Admin: 09/07/16 22:38 Dose: 5 mg Exam - Physical Exam Narrative exam: Very Comfortable - Constitutional Vitals: Temp Pulse Resp BP Pulse Ox 98.6 F 88 21 87/50 98 09/08/16 01:38 09/08/16 01:38 09/08/16 01:38 09/08/16 01:38 09/08/16 01:38 General appearance: Present: no acute distress, well-nourished - EENT Eyes: Present: PERRL ENT: hearing intact, clear oral mucosa - Neck Neck: Present: supple, normal ROM - Respiratory Respiratory effort: normal Respiratory: bilateral: CTA - Cardiovascular Heart rate: 78 Rhythm: regular Heart Sounds: Present: S1 & S2. Absent: rub, click - Extremities Extremities: pulses symmetrical, No edema Peripheral Pulses: within normal limits - Abdominal General gastrointestinal: Present: soft, non-tender, non-distended, normal bowel sounds Female genitourinary: Present: normal - Integumentary Integumentary: Present: clear, warm, dry - Musculoskeletal Musculoskeletal: gait normal, strength equal bilaterally - Psychiatric Psychiatric: appropriate mood/affect, intact judgment & insight - Neurologic Neurologic: CNII-XII intact, moves all extremities, gait normal - Allied Health Allied health notes reviewed: nursing Results - Labs CBC & Chem 7: 09/07/16 12:51 09/07/16 14:49 Labs: Laboratory Last Values WBC 6.7 K/mm3 (4.5-11.0) 09/07/16 12:51 RBC 4.49 M/mm3 (3.65-5.03) 09/07/16 12:51 Hgb 14.1 gm/dl (10.1-14.3) 09/07/16 12:51 Hct 44.3 % (30.3-42.9) H 09/07/16 12:51 MCV 99 fl (79-97) H 09/07/16 12:51 MCH 31 pg (28-32) 09/07/16 12:51 MCHC 32 % (30-34) 09/07/16 12:51 RDW 18.9 % (13.2-15.2) H 09/07/16 12:51 Plt Count 236 K/mm3 (140-440) 09/07/16 12:51 Lymph % (Auto) 20.3 % (13.4-35.0) 09/07/16 12:51 Benzie % (Auto) 4.7 % (0.0-7.3) 09/07/16 12:51 Eos % (Auto) 1.2 % (0.0-4.3) 09/07/16 12:51 Baso % (Auto) 1.1 % (0.0-1.8) 09/07/16 12:51 Lymph # 1.4 K/mm3 (1.2-5.4) 09/07/16 12:51 Benzie # 0.3 K/mm3 (0.0-0.8) 09/07/16 12:51 Eos # 0.1 K/mm3 (0.0-0.4) 09/07/16 12:51 Baso # 0.1 K/mm3 (0.0-0.1) 09/07/16 12:51 Seg Neutrophils % 72.7 % (40.0-70.0) H 09/07/16 12:51 Seg Neutrophils # 4.9 K/mm3 (1.8-7.7) 09/07/16 12:51 PT 12.8 Sec. (12.2-14.9) 09/07/16 12:51 INR 0.97 (0.87-1.13) 09/07/16 12:51 APTT 32.0 Sec. (24.2-36.6) 09/07/16 12:51 Sodium 131 mmol/L (137-145) L 09/07/16 14:49 Potassium 3.1 mmol/L (3.6-5.0) L 09/07/16 14:49 Chloride 86.1 mmol/L (98-107) L 09/07/16 14:49 Carbon Dioxide 16 mmol/L (22-30) L 09/07/16 14:49 Anion Gap 32 mmol/L 09/07/16 14:49 BUN 58 mg/dL (7-17) H 09/07/16 14:49 Creatinine 12.2 mg/dL (0.7-1.2) H 09/07/16 14:49 Estimated GFR 4 ml/min 09/07/16 14:49 BUN/Creatinine Ratio 4.75 % 09/07/16 14:49 Glucose 109 mg/dL (65-100) H 09/07/16 14:49 Lactic Acid 2.50 mmol/L (0.7-2.0) H* 09/07/16 12:51 Calcium 8.8 mg/dL (8.4-10.2) 09/07/16 14:49 Phosphorus 9.70 mg/dL (2.5-4.5) H 09/07/16 14:49 Total Bilirubin 0.30 mg/dL (0.1-1.2) 09/07/16 12:51 Direct Bilirubin < 0.2 mg/dL (0-0.2) 09/07/16 12:51 AST 23 units/L (5-40) 09/07/16 12:51 ALT 21 units/L (7-56) 09/07/16 12:51 Alkaline Phosphatase 82 units/L (35-129) 09/07/16 12:51 Total Creatine Kinase 41 units/L (30-135) 09/07/16 12:51 CK-MB (CK-2) 1.6 ng/mL (0.0-4.0) 09/07/16 12:51 CK-MB (CK-2) Rel Index 3.9 (0-4) 09/07/16 12:51 Troponin T 0.035 ng/mL (0.00-0.029) H 09/07/16 21:13 NT-Pro-B Natriuret Pep 639.4 pg/mL (0-900) 09/07/16 12:51 Total Protein 8.0 g/dL (6.3-8.2) 09/07/16 12:51 Albumin 4.4 g/dL (3.9-5) 09/07/16 12:51 Albumin/Globulin Ratio 1.2 % 09/07/16 12:51 Triglycerides 170 mg/dL (2-149) H 09/07/16 12:51 Cholesterol 166 mg/dL (50-199) 09/07/16 12:51 LDL Cholesterol Direct 62 mg/dL (50-130) 09/07/16 12:51 HDL Cholesterol 70 mg/dL (40-59) H 09/07/16 12:51 Cholesterol/HDL Ratio 2.37 % 09/07/16 12:51 Blood Type B POSITIVE 09/07/16 12:30 Antibody Screen TNR 09/07/16 12:30 BOBBY Antibody Screen Negative 09/07/16 12:30 Assessment and Plan Advance Directives: Yes (FC) VTE prophylaxis?: Chemical Plan of care discussed with patient/family: Yes - Patient Problems (1) Hypotension Current Visit: Yes Status: Acute Qualifiers: Hypotension type: unspecified hypotension type Trimester: T Qualified Code(s): I95.9 - Hypotension, unspecified Plan to address problem: Probably sec to mineralocorticoid deficiency.Patient on florinef and Midodrine. Will iobserve for 24 hours and discharge. (2) Hypokalemia Onset Date: 11/11/15 Current Visit: No Status: Acute Plan to address problem: Supplemented (3) End-stage renal disease on hemodialysis Current Visit: Yes Status: Chronic Plan to address problem: Cont HD (4) Ileostomy in place Current Visit: Yes Status: Chronic (5) Metabolic acidosis Current Visit: Yes Status: Acute Plan to address problem: AG of 32.Inadequate HD (6) Malnutrition Current Visit: No Status: Chronic (7) DVT prophylaxis Current Visit: Yes Status: Acute (8) DVT prophylaxis Current Visit: Yes Status: Acute Plan to address problem: on Heparin
[2016-09-08] MEDS ORDERED: TYLENOL PO PRN (03:32)
[2016-09-08] MEDS ORDERED: ZOFRAN IV PRN (03:32)
[2016-09-08] MEDS ORDERED: MILK OF MAGNESIA PO PRN (03:32)
[2016-09-08] MEDS ORDERED: DULCOLAX PR PRN (03:32)
[2016-09-08] MEDS ORDERED: K-DUR PO ONE ×2 (03:36→06:00)
[2016-09-08 07:51] LABS: Basophils % (Auto) 0.8 % (0.0-1.8); Eosinophils % (Auto) 2.8 % (0.0-4.3); Hematocrit 39.8 % (30.3-42.9); Hemoglobin 13.1 gm/dl (10.1-14.3); Mean Corpuscular HGB Conc 33 % (30-34); Mean Corpuscular Hemoglobin 31 pg (28-32); Platelet Count 220 K/mm3 (140-440); Red Blood Count 4.24 M/mm3 (3.65-5.03); Red Cell Distribution Width 18.5 % (13.2-15.2); White Blood Count 5.6 K/mm3 (4.5-11.0)
[2016-09-08] MEDS ORDERED: PHOSLO PO SCH (08:00)
[2016-09-08 08:03] LABS: Albumin 4.2 g/dL (3.9-5); Albumin/Globulin Ratio 1.4 %; BUN/Creatinine Ratio 5.36; Bilirubin,Total 0.2 mg/dL (0.1-1.2); Calcium 8.1 mg/dL (8.4-10.2); Chloride 87.2 mmol/L (98-107); Potassium 3.6 mmol/L (3.6-5.0); Total Protein 7.1 g/dL (6.3-8.2)
[2016-09-08] MEDS: PHOSLO PO SCH ×2 (08:50→16:55)
[2016-09-08] MEDS: SODIUM BICARBONATE PO SCH (09:16)
[2016-09-08] MEDS: PROAMATINE PO SCH (09:17)
[2016-09-08] MEDS: FLORINEF PO SCH (09:18)
[2016-09-08 09:23] LABS: Mean Corpuscular Volume 95 fl (79-97)
[2016-09-08] MEDS ORDERED: K-DUR PO SCH (10:00)
[2016-09-08] MEDS ORDERED: PEPCID IV SCH (10:00)
[2016-09-08] MEDS ORDERED: FLORINEF PO SCH (10:00)
[2016-09-08] MEDS ORDERED: POTASSIUM CHLORIDE PO SCH (10:00)
[2016-09-08] MEDS ORDERED: FEOSOL PO SCH (10:00)
[2016-09-08] MEDS ORDERED: VITAMIN D3 PO SCH (10:00)
[2016-09-08] MEDS ORDERED: PROAMATINE PO SCH (10:00)
[2016-09-08] MEDS ORDERED: NACL 0.9 (PRIMING MACHINE ONLY DIALYSIS) MC ONE (11:35)
--- NOTE | 2016-09-08 12:47 | Progress Note ---
Assessment and Plan Impression * End-stage renal disease on maintenance hemodialysis * Metabolic acidosis * Hypokalemia * Chronic hypotension * History of renal cell cancer s/p partial nephrectomy Recommendations * HD today; no UF * Continue home meds - Florinef, Midodrine, PhosLo and KDur * Dose medications for renal function * Epogen goal 10-12 * Should be stable for d/c after HD today - please give patient rx for Florinef and Midodrine Subjective Date of service: 09/08/16 Interval history: Patient is feeling better today Objective - Vital Signs Vital signs: Vital Signs - 12hr 09/08/16 09/08/16 09/08/16 00:55 01:38 05:51 Temperature 98.6 F 98.6 F Pulse Rate 88 Pulse Rate [ 88 21 L Left] Respiratory 21 20 Rate Blood Pressure 87/50 82/40 [Left Arm] O2 Sat by Pulse 98 98 Oximetry 09/08/16 08:00 Temperature 98.1 F Pulse Rate Pulse Rate [ 92 H Left] Respiratory 20 Rate Blood Pressure 89/59 [Left Arm] O2 Sat by Pulse 97 Oximetry - General Appearance General appearance: well-developed, frail EENT: ATNC Respiratory: Present: Clear to Ascultation Cardiology: regular, S1S2 Gastrointestinal: normal, no tenderness, no distended Integumentary: no rash Musculoskeletal: other (no edema) - Lab 09/08/16 07:17 09/08/16 07:17 Most recent lab results Calcium 8.1 mg/dL (8.4-10.2) L 09/08/16 07:17 Phosphorus 9.70 mg/dL (2.5-4.5) H 09/07/16 14:49
--- NOTE | 2016-09-08 16:33 | Discharge Summary ---
Providers - Providers Date of Admission: 09/07/16 15:23 Date of discharge: 09/08/16 Attending physician: ELINA CARTAGENA 09/07/16 15:39 Consult to Physician [CONS] Urgent Consulting Provider: GABRIELA SINGH Reason For Exam: acidosis HD pt low b/p Notified:: paged Primary care physician: CONOR BECKMAN MD Hospitalization Condition: Stable Hospital course: Patient is 70-year-old woman history end-stage renal disease, Crohn's, hypotension on Midodrine and Florinef who presents from hemodialysis after worsening hypotension. There is a remote history of Shy-Drager's autonomic dysfunction but I don't see a resting tremors or over Parkinson's signs -Hypertension he autonomic dysfunction versus end-stage renal disease/ hemodialysis related -End Stage renal disease needing hemodialysis -Anemia of chronic disease Disposition: DC-01 TO HOME OR SELFCARE Time spent for discharge: 34 minutes Core Measure Documentation - Palliative Care Palliative Care/ Comfort Measures: Not Applicable - Core Measures Any of the following diagnoses?: none - VTE Discharge Requirements Deep Vein Thrombosis/Pulmonary Embolism Present on Admission: No Has pt received <5 days of overlap therapy or INR<2.0: No Anticoagulant overlap therapy prescribed at discharge: No Contraindication No Overlap Therapy order at DC: Not Indicated Exam - Physical Exam Narrative exam: GEN: WDWN, NAD, AWAKE, ALERT, ORIENTATED x 3 CVS: RRR, NORMAL S1S2 LUNGS/CHEST: CTA B, NORMAL CHEST EXPANSION B, GOOD AIR ENTRY B ABD: SOFT, NTND, GBS, NO REBOUND OR GUARDING EXT/SKIN: NO SIGNIFICANT EDEMA OR RASH MSK: FROM X 4 EXTREMITIES NEURO: CN 2-12 GROSSLY INTACT, NO new FOCAL DEFICITS PSY: CALM, makes very abrasive unprovoked statements such as, "how do you think I'm doing, what do you expect, I'm in a hospital!" - Constitutional Vitals: Temp Pulse Resp BP Pulse Ox 98.2 F 86 18 68/45 97 09/08/16 10:20 09/08/16 11:00 09/08/16 10:20 09/08/16 11:00 09/08/16 16:21 Plan Activity: other (no strenous activites until cleared by PCP. ) Diet: renal Follow up with: PRIMARY CAREMD [Primary Care Provider] - 3-5 Days Prescriptions: Zolpidem [Ambien] 5 mg PO QHS PRN #30 tablet PRN Reason: Sleep Fludrocortisone [Florinef] 0.1 mg PO BID #60 tablet Midodrine [Proamatine] 10 mg PO BID #60 tablet Sodium Bicarbonate 650 mg PO BID #60 tablet
[2016-09-08 19:03] VITALS: BP 77/51
[2016-09-08] MEDS ORDERED: DESYREL PO SCH (22:00)
== END 2016-09-08 18:40 | disposition home or self-care (01) | DRG 314 ==
LOC: ED 11:32 → 4A 15:23
PROVIDERS: ADMIT Internal Medicine; ATTEND Internal Medicine
PROC: 5A1D00Z (ICD-10-PCS; principal; 2016-06-12)
DX: I95.9 Hypotension, unspecified (principal); N18.6 End stage renal disease; K50.90 Crohn's disease, unspecified, without complications; I13.2 Hypertensive heart and chronic kidney disease with heart failure and with stage 5 chronic kidney disease, or end stage renal disease; E87.1 Hypo-osmolality and hyponatremia; E87.2 Acidosis; E46 Unspecified protein-calorie malnutrition; I50.9 Heart failure, unspecified; D63.8 Anemia in other chronic diseases classified elsewhere; J44.9 Chronic obstructive pulmonary disease, unspecified; F45.8 Other somatoform disorders; E87.6 Hypokalemia; Z88.0 Allergy status to penicillin; Z91.041 Radiographic dye allergy status; Z91.018 Allergy to other foods; Z87.442 Personal history of urinary calculi; Z68.20 Body mass index [BMI] 20.0-20.9, adult; Z85.528 Personal history of other malignant neoplasm of kidney; Z90.5 Acquired absence of kidney
CPT/HCPCS: 36415; 71010; 80048; 80053; 80061; 80074; 82140; 82550; 82553; 83880; 84100; 84484; 85025; 85610; 85730; 86850; 86900; 86901; 87040; 93005; 93010; 96374; 99291; J7030; J7050

== ENCOUNTER 2016-11-25 15:37 | Inpatient (IN) | payer MEDICARE ==
[2016-11-25 16:10] LABS: Basophils % (Auto) 0.9 % (0.0-1.8); Eosinophils % (Auto) 2.4 % (0.0-4.3); Hematocrit 29.8 % (30.3-42.9); Hemoglobin 9.9 gm/dl (10.1-14.3); Mean Corpuscular HGB Conc 33 % (30-34); Mean Corpuscular Hemoglobin 32 pg (28-32); Mean Corpuscular Volume 97 fl (79-97); Platelet Count 270 K/mm3 (140-440); Red Blood Count 3.06 M/mm3 (3.65-5.03); Red Cell Distribution Width 18.7 % (13.2-15.2); White Blood Count 6.7 K/mm3 (4.5-11.0)
[2016-11-25 16:31] LABS: BUN/Creatinine Ratio 1.86; Calcium 8.3 mg/dL (8.4-10.2)
[2016-11-25 16:38] LABS: Potassium 2.9 mmol/L (3.6-5.0)
--- NOTE | 2016-11-25 20:35 | Emergency Department Report ---
ED General Adult HPI - General Chief complaint: Medical Clearance Stated complaint: PORT CLOGGED Time Seen by Provider: 11/25/16 20:27 Source: patient, family, RN notes reviewed, old records reviewed Mode of arrival: Ambulatory Limitations: No Limitations - History of Present Illness Initial comments: This is a 72-year-old female, the patient is previously unknown to me. Has a past medical history of asthma, congestive heart failure, kidney stones, end- stage renal disease on dialysis. Patient is sent to the ER by her retail product demo specialist for left upper extremity clotted AV fistula. Patient typically gets dialysis Wednesday, Wednesday, Wednesday. Her last dialysis session was yesterday, and she reports that it was unremarkable. Patient denies headache, neck pain, chest pain, abdominal pain, shortness of breath, irritative/obstructive urinary symptoms. -: Gradual Location: left, upper extremity Severity scale (0 -10): 0 Consistency: constant Improves with: none Worsens with: none Associated Symptoms: denies other symptoms - Related Data Home Medications Medication Instructions Recorded Confirmed Last Taken Ferrous Sulfate [Feosol 325 MG tab] 325 mg PO BID 09/07/16 11/26/16 11/20/16 traZODone [Desyrel] 50 mg PO QHS 09/07/16 11/26/16 11/19/16 Previous Rx's Medication Instructions Recorded Last Taken Type Acetaminophen [Acetaminophen TAB] 325 mg PO Q4H PRN #30 tablet 09/08/16 Rx Sodium Bicarbonate 650 mg PO BID #60 tablet 09/08/16 11/20/16 Rx Zolpidem [Ambien] 5 mg PO QHS PRN #30 tablet 09/08/16 11/19/16 Rx Calcium Acetate 2,001 mg PO TID #90 capsule 11/25/16 Unknown Rx Cholecalciferol Vit D3 [Vitamin D3] 1,000 unit PO DAILY #30 tablet 11/25/16 Unknown Rx Fludrocortisone [Florinef] 0.1 mg PO BID #60 tablet 11/25/16 Unknown Rx Midodrine [Proamatine] 10 mg PO BID #60 tablet 11/25/16 Unknown Rx Sertraline [Zoloft] 25 mg PO QDAY #30 tablet 11/25/16 Unknown Rx oxyCODONE /ACETAMINOPHEN [Percocet 1 tab PO Q6H PRN #12 tablet 11/25/16 Unknown Rx 5/325 mg] Allergies Allergy/AdvReac Type Severity Reaction Status Date / Time Barbiturates Allergy Hives Verified 11/20/16 20:26 Iodine and Iodide Containing Allergy Hives Verified 11/20/16 20:26 Produc cosmo Allergy Swelling Verified 11/20/16 20:26 penicillin Allergy Swelling Verified 11/20/16 20:26 HORSES Allergy Swelling Uncoded 11/20/16 20:26 CATS AdvReac Unknown Uncoded 11/20/16 20:26 ED Review of Systems ROS: Stated complaint: PORT CLOGGED Other details as noted in HPI Constitutional: denies: fever Eyes: denies: vision change ENT: denies: epistaxis Respiratory: denies: cough Cardiovascular: denies: chest pain Gastrointestinal: denies: abdominal pain Genitourinary: as per HPI Musculoskeletal: myalgia Skin: denies: lesions Neurological: weakness (chronic) ED Past Medical Hx - Past Medical History Hx Hypertension: Yes Hx Heart Attack/AMI: No Hx Congestive Heart Failure: Yes Hx Renal Disease: Yes Hx Kidney Stones: Yes Hx Asthma: Yes Hx COPD: Yes Hx HIV: No Additional medical history: ileostomy, Crohn's versus ulcerative colitis, hypotension - Surgical History Additional Surgical History: ileostomy - Social History Smoking Status: Never Smoker - Medications Home Medications: Home Medications Medication Instructions Recorded Confirmed Last Taken Type Ferrous Sulfate [Feosol 325 MG tab] 325 mg PO BID 09/07/16 11/26/16 11/20/16 History traZODone [Desyrel] 50 mg PO QHS 09/07/16 11/26/16 11/19/16 History Acetaminophen [Acetaminophen TAB] 325 mg PO Q4H PRN #30 tablet 09/08/1611/20/16 Rx Sodium Bicarbonate 650 mg PO BID #60 tablet 09/08/16 11/26/16 11/20/16 Rx Zolpidem [Ambien] 5 mg PO QHS PRN #30 tablet 09/08/16 11/26/16 11/19/16 Rx Calcium Acetate 2,001 mg PO TID #90 capsule 11/25/16 11/26/16 Unknown Rx Cholecalciferol Vit D3 [Vitamin D3] 1,000 unit PO DAILY #30 tablet 11/25/16 Unknown Rx Fludrocortisone [Florinef] 0.1 mg PO BID #60 tablet 11/25/16 11/26/16 Unknown Rx Midodrine [Proamatine] 10 mg PO BID #60 tablet 11/25/16 11/26/16 Unknown Rx Sertraline [Zoloft] 25 mg PO QDAY #30 tablet 11/25/16 11/26/16 Unknown Rx oxyCODONE /ACETAMINOPHEN [Percocet 1 tab PO Q6H PRN #12 tablet 11/25/16 Unknown Rx 5/325 mg] ED Physical Exam - General Limitations: No Limitations General appearance: alert, in no apparent distress - Head Head exam: Present: atraumatic, normocephalic - Eye Eye exam: Present: normal appearance, EOMI. Absent: nystagmus - ENT ENT exam: Present: normal exam, normal orophraynx, mucous membranes moist, normal external ear exam - Neck Neck exam: Present: normal inspection, full ROM. Absent: tenderness, meningismus - Respiratory Respiratory exam: Present: normal lung sounds bilaterally. Absent: respiratory distress, wheezes, rales, rhonchi, stridor, chest wall tenderness, accessory muscle use, decreased breath sounds, prolonged expiratory - Cardiovascular Cardiovascular Exam: Present: regular rate, normal rhythm, normal heart sounds. Absent: bradycardia, tachycardia, irregular rhythm, systolic murmur, diastolic murmur, rubs, gallop - GI/Abdominal GI/Abdominal exam: Present: soft, normal bowel sounds. Absent: distended, tenderness, guarding, rebound, rigid, pulsatile mass - Extremities Exam Extremities exam: Present: normal inspection, normal capillary refill, other ( left upper extremity AV fistula is nontender, clot is appreciated, thrill is not appreciated.). Absent: pedal edema, joint swelling, calf tenderness - Back Exam Back exam: Present: normal inspection - Neurological Exam Neurological exam: Present: alert, oriented X3, other (Extraocular movements intact. Tongue midline. No facial droop. Facial sensation intact to light touch in the V1, V2, V3 distribution bilaterally. 5 and 5 strength in 4 extremities.. Sensation is intact to light touch in 4 extremities.). Absent: motor sensory deficit - Psychiatric Psychiatric exam: Present: agitated - Skin Skin exam: Present: warm, dry, intact, normal color. Absent: rash ED Course Vital Signs 11/25/16 11/25/16 11/25/16 15:42 19:10 21:00 Temperature 98.4 F Pulse Rate 106 H 104 H Respiratory 18 18 16 Rate Blood Pressure 99/62 Blood Pressure 99/62 100/56 [Right] O2 Sat by Pulse 99 100 99 Oximetry 11/25/16 11/26/16 23:00 01:30 Temperature 98.7 F 98.8 F Pulse Rate 94 H 99 H Respiratory 18 18 Rate Blood Pressure Blood Pressure 102/60 100/58 [Right] O2 Sat by Pulse 98 99 Oximetry ED Medical Decision Making - Lab Data Result diagrams: 11/25/16 16:02 11/25/16 16:02 Vital Signs 11/25/16 11/25/16 15:42 19:10 Temperature 98.4 F Pulse Rate 106 H Respiratory 18 18 Rate Blood Pressure 99/62 Blood Pressure 99/62 [Right] O2 Sat by Pulse 99 100 Oximetry Lab Results 11/25/16 11/25/16 11/25/16 Range/Units 16:02 16:02 18:11 WBC 6.7 (4.5-11.0) K/mm3 RBC 3.06 L (3.65-5.03) M/mm3 Hgb 9.9 L (10.1-14.3) gm/dl Hct 29.8 L (30.3-42.9) % MCV 97 (79-97) fl MCH 32 (28-32) pg MCHC 33 (30-34) % RDW 18.7 H (13.2-15.2) % Plt Count 270 (140-440) K/mm3 Lymph % (Auto) 13.2 L (13.4-35.0) % Rosebud % (Auto) 6.3 (0.0-7.3) % Eos % (Auto) 2.4 (0.0-4.3) % Baso % (Auto) 0.9 (0.0-1.8) % Lymph # 0.9 L (1.2-5.4) K/mm3 Rosebud # 0.4 (0.0-0.8) K/mm3 Eos # 0.2 (0.0-0.4) K/mm3 Baso # 0.1 (0.0-0.1) K/mm3 Seg Neutrophils % 77.2 H (40.0-70.0) % Seg Neutrophils # 5.2 (1.8-7.7) K/mm3 Sodium 132 L (137-145) mmol/L Potassium 2.9 L* D (3.6-5.0) mmol/L Chloride 86.0 L (98-107) mmol/L Carbon Dioxide 21 L (22-30) mmol/L Anion Gap 28 mmol/L BUN 14 (7-17) mg/dL Creatinine 7.5 H (0.7-1.2) mg/dL Estimated GFR 6 ml/min BUN/Creatinine Ratio 1.86 % Glucose 190 H (65-100) mg/dL Calcium 8.3 L (8.4-10.2) mg/dL Troponin T 0.010 < 0.010 (0.00-0.029) ng/mL - Medical Decision Making Differential diagnosis: Nonfunctioning left-sided AV fistula, chronic renal insufficiency Assessment and plan: 71-year-old female who is asymptomatic with a nonfunctioning AV fistula. Has chronic hypotension. Case discussed with vascular surgery, Dr. Cornelius Maguire, and nephrology, Dr. Nava. They recommended admission for correction and possible fistulogram. Case is presented to the Hospital physician, Dr. Barrett, who accepts the patient to his service. Patient has no complaints at this time. Critical care attestation.: If time is entered above; I have spent that time in minutes in the direct care of this critically ill patient, excluding procedure time. ED Disposition Clinical Impression: AV fistula occlusion, End stage renal disease on dialysis Disposition: OP ADMIT IP TO THIS HOSP Is pt being admited?: Yes Condition: Good
[2016-11-25] MEDS ORDERED: TYLENOL PO PRN (23:09)
[2016-11-25] MEDS ORDERED: ZOFRAN IV PRN (23:09)
[2016-11-25] MEDS ORDERED: MORPHINE IV PRN (23:10)
[2016-11-25] MEDS ORDERED: RESTORIL PO PRN (23:11)
[2016-11-26] MEDS ORDERED: KCL 10MEQ/100ML 10 MEQ/100 ML BAG IV ONE ×2 (01:44→02:05)
[2016-11-26] MEDS ORDERED: NACL 0.9% 1000 ML 1,000 ML ONE (01:59)
[2016-11-26] MEDS ORDERED: NACL 0.9% 1000 ML 1,000 ML IV ONE (02:00)
[2016-11-26] MEDS ORDERED: KCL 10MEQ/100ML 10 MEQ/100 ML BAG IV SCH (03:00)
--- NOTE | 2016-11-26 06:07 | History and Physical Report ---
CHIEF COMPLAINT: Clogging of the AV fistula in the left upper extremity. HISTORY OF PRESENT ILLNESS: The patient is a 71-year-old female with end-stage renal disease, having dialysis on Mondays, Wednesdays and Fridays and went for dialysis, but was noted to have blockage in the AV fistula in the left upper extremity. There was no history of pain. No history of fever or chills. The patient was sent over by Nephrology for evaluation of the AV fistula. There is no history of shortness of breath or chest pain. PAST MEDICAL HISTORY: Pertinent for hypertension; congestive heart failure; end-stage renal disease, on dialysis; kidney stones; asthma; COPD and also the patient has past history of Crohn disease with ulcerative colitis as well as the ileostomy. PAST SURGICAL HISTORY: Pertinent for ileostomy and AV fistula placement in the left upper extremity. FAMILY HISTORY: Noncontributory. SOCIAL HISTORY: The patient does not smoke, does not drink alcohol and does not use illicit drugs. MEDICATIONS: The patient is on ferrous sulfate 325 mg by mouth twice daily, trazodone 50 mg at bedtime, Tylenol 325 mg by mouth every 4 hours as needed for fever and pain, sodium bicarbonate 650 mg by mouth twice daily, Ambien 5 mg by mouth at bedtime, calcium acetate 2001 mg by mouth 3 times daily, vitamin D3 1000 units by mouth daily, Florinef 0.1 mg p.o. b.i.d., midodrine 10 mg p.o. b.i.d., Zoloft 25 mg by mouth daily and Percocet 5/325 mg 1 by mouth every 6 hours as needed for pain. ALLERGIES: THE PATIENT IS ALLERGIC TO BARBITURATES, IODINE AND IODINE CONTAINING PRODUCTS AND ALSO VINNY. REVIEW OF SYSTEMS: CONSTITUTIONAL: There is no fever, no chills, no diaphoresis. HEENT: There is no headache or sore throat. CARDIOVASCULAR SYSTEM: There is no chest pain, orthopnea. RESPIRATORY SYSTEM: There is no shortness of breath or cough. GASTROINTESTINAL SYSTEM: There is no nausea, no vomiting, no abdominal pain, diarrhea or constipation. NEUROLOGICAL SYSTEM: There is no numbness, no dizziness, no altered mental status. MUSCULOSKELETAL SYSTEM: There is no joint pain or swelling. DERMATOLOGICAL SYSTEM: There is no skin rash or itching. GENITOURINARY SYSTEM: Denies dysuria, but no hematuria, no flank pain. Rest of system review is normal. PHYSICAL EXAMINATION: GENERAL: At the time of exam, the patient was found to be alert, oriented x 3 and not in acute distress. VITAL SIGNS: Shows temperature of 98.8 degrees Fahrenheit with pulse of 94, respirations 18, blood pressure of 102/60 and O2 sat of 98% on room air. HEENT: Showed pupils to be equal, round, reactive to light and accommodating. Extraocular muscles are intact. NECK: Supple with no JVD or carotid bruit. CARDIOVASCULAR SYSTEM: Showed first and second heart sounds with no gallops or murmurs. RESPIRATORY SYSTEM: Showed good air entry on both sides of the lung with no abnormal breath sounds. GASTROINTESTINAL SYSTEM: Show abdomen to be soft, nontender with no organomegaly or rigidity. NEUROLOGIC SYSTEM: Showed no focal deficit. MUSCULOSKELETAL SYSTEM: Show no joint swelling or tenderness. DERMATOLOGICAL SYSTEM: Show no skin rash, but has scar tissues on the left upper extremity briggs, the area of the dialysis AV fistula. GENITOURINARY: Show no costovertebral angle tenderness. PERTINENT LABORATORY AND IMAGING STUDIES: The patient has CBC done with normal white count, low hemoglobin of 9.9 and low hematocrit of 29.8 with CBC differential showing slight improve in segmented neutrophils of 77.2%. The patient's chemistry showed low sodium of 132 and very low potassium level of 2.9 and low chloride level of 86 and low CO2 of 21, normal BUN and high creatinine of 7.5, consistent with end-stage renal disease, on dialysis. The patient's glucose shows slight increase of 190, calcium level was slightly low with a value of . Cardiac enzymes show an unremarkable troponin level. DIAGNOSES: 1. Blocked left upper extremity dialysis arteriovenous fistula. 2. Hypokalemia. 3. Anemia. PLAN: The patient will be admitted to medical floor telemetry and will have IV KCl containing 10 mEq in 100 mL of normal saline to be given over 1 hour x 4 doses. The patient will remain n.p.o. for intervention by the vascular surgeon. The patient will have vascular surgical consult with Dr. Cornelius Maguire because of blocked AV fistula. The patient will also have Nephrology consult with Dr. Nava for management of the end-stage renal disease, on dialysis, and the patient will be on Tylenol 650 mg by mouth every 4 hours for fever, headache and will be on her home medications as shown in the medication reconciliation section. The patient will also be on IV morphine 2 mg every 4 hours as needed for pain, and would remain n.p.o. for intervention by the vascular surgeon in the morning. DVT prophylaxis will be through sequential compressive device and the patient's home medications will be reconciled and started. JOB# [id number] OCN/NTS
[2016-11-26] MEDS: PHOSLO PO SCH ×3 (08:40→18:25)
--- NOTE | 2016-11-26 09:30 | Consultation ---
History of Present Illness - History of Present Illness Thank you for the consultation patient was evaluated today. Source of information; patient himself current records were also reviewed History of presenting illness; Patient is a 71-year-old -[place] female who was recently admitted for evaluation of weakness shortness of breath and was also noted to be chronically hypotensive despite being on midodrine as well as fludrocortisone.. Patient was discharged yesterday and returned back abscess or fistula quit working and was noted to be clotted currently she is status post, declot procedure and access is working well She does not complain of any chest pain pressure or shortness of breath In previous admission I did start her on Zoloft due to issues with chronic depression that she had without any suicidal ideation and spells of anxiety. Patient is currently also on trazodone which can cause hypotension and will need to be discontinued Past medical history is significant for End-stage renal disease currently in maintenance dialysis Anemia and end-stage renal disease Chronic hypotension per patient depression Secondary hyperparathyroidism Allergies: barbiturate iodine iodide-containing product cosmo etc Social history:denies any history of alcohol drug tobacco use Family history:noncontributory for related disorder Review of system is positive for chronic hypotension depression without suicidal ideation clotted fistula Complete review of systems obtained pertinent positive above mother's review of systems negative Physical examination General: No acute distress HEENT: Oral mucosa moist no pharyngeal erythema no pallor or icterus no uremic order Neck: Supple no evidence of any thyromegaly trachea midline no JVD Chest: Clear to auscultation no crackles are also wheezes anteriorly Heart: Regular rate and rhythm S1-S2 heard no S3-S4 Abdomen: Soft nontender no renal bruit no CVA tenderness no suprapubic fullness no organomegaly Extremity: Minimal edema dry skin no peripheral cyanosis pulses palpable, her fistula in the left arm has good thrill and bruit Neurological: Alert awake follows command grossly nonfocal examination Back: Nontender thoracolumbar spine Musculoskeletal: No joint effusion noted Skin: No petechial rash/noted Assessment and plan 1.end-stage renal disease patient is currently in maintenance hemodialysis; she will need hemodialysis treatment tomorrow 2.hypokalemia consider higher potassium bath 3.chronic hypotension in a patient who is poorly compliant with fluid intake also is currently on trazodone which does cause orthostatic drop in blood pressure would discontinue 4.chronic depression and anxiety started on Zoloft patient appears to be doing better even though it was just started recently 5.history of hip fracture 6.patient has had complete cardiac workup by [facility] in the past Nature and issue of renal-related issues were discussed with patient, all questions were answered and simple Yi Patient does have good understanding about renal-related issues discussed with Dr. Corcoran we'll continue to follow and make recommendation from renal standpoint If you have any questions please feel free to contact me at [phone] Medications and Allergies Allergies Allergy/AdvReac Type Severity Reaction Status Date / Time Barbiturates Allergy Hives Verified 11/20/16 20:26 Iodine and Iodide Containing Allergy Hives Verified 11/20/16 20:26 Produc cosmo Allergy Swelling Verified 11/20/16 20:26 penicillin Allergy Swelling Verified 11/20/16 20:26 HORSES Allergy Swelling Uncoded 11/20/16 20:26 CATS AdvReac Unknown Uncoded 11/20/16 20:26 Home Medications Medication Instructions Recorded Confirmed Last Taken Type Ferrous Sulfate [Feosol 325 MG tab] 325 mg PO BID 09/07/16 11/26/16 11/20/16 History traZODone [Desyrel] 50 mg PO QHS 09/07/16 11/26/16 11/19/16 History Acetaminophen [Acetaminophen TAB] 325 mg PO Q4H PRN #30 tablet 09/08/1611/20/16 Rx Sodium Bicarbonate 650 mg PO BID #60 tablet 09/08/16 11/26/16 11/20/16 Rx Zolpidem [Ambien] 5 mg PO QHS PRN #30 tablet 09/08/16 11/26/16 11/19/16 Rx Calcium Acetate 2,001 mg PO TID #90 capsule 11/25/16 11/26/16 Unknown Rx Cholecalciferol Vit D3 [Vitamin D3] 1,000 unit PO DAILY #30 tablet 11/25/16 Unknown Rx Fludrocortisone [Florinef] 0.1 mg PO BID #60 tablet 11/25/16 11/26/16 Unknown Rx Midodrine [Proamatine] 10 mg PO BID #60 tablet 11/25/16 11/26/16 Unknown Rx Sertraline [Zoloft] 25 mg PO QDAY #30 tablet 11/25/16 11/26/16 Unknown Rx oxyCODONE /ACETAMINOPHEN [Percocet 1 tab PO Q6H PRN #12 tablet 11/25/16 Unknown Rx 5/325 mg] Active Meds: Active Medications Acetaminophen (Tylenol) 650 mg PO Q4H PRN PRN Reason: For Pain/Fever/Headache Calcium Acetate (Phoslo) 2,001 mg PO TIDWM [facility] Cholecalciferol (Vitamin D3) 1,000 unit PO DAILY [facility] Ferrous Sulfate (Feosol) 325 mg PO BID [facility] Fludrocortisone Acetate (Florinef) 0.1 mg PO BID [facility] Influenza Virus Vaccine Quadrival (Fluarix Quad [id number] Mos+)) 0.5 ml IM .ONCE ONE Stop: 11/27/16 12:01 Midodrine (Proamatine) 10 mg PO BID [facility] Morphine Sulfate (Morphine) 2 mg IV Q4H PRN PRN Reason: Pain, Moderate (4-6) Ondansetron HCl (Zofran) 4 mg IV Q8H PRN PRN Reason: Nausea And Vomiting Potassium Chloride (K-Dur) 40 meq PO ONCE ONE Stop: 11/26/16 10:01 Sertraline HCl (Zoloft) 25 mg PO QDAY [facility] Sodium Bicarbonate (Sodium Bicarbonate) 650 mg PO BID [facility] Temazepam (Restoril) 15 mg PO QHS PRN PRN Reason: Insomnia Trazodone HCl (Desyrel) 50 mg PO QHS [facility] Exam - Vital Signs Vital signs: Vital Signs Temp Pulse Resp BP Pulse Ox 98.4 F 106 H 18 99/62 99 11/25/16 15:42 11/25/16 15:42 11/25/16 15:42 11/25/16 15:42 11/25/16 15:42 Results - Lab Results 11/25/16 16:02 11/26/16 12:54 Most recent lab results Calcium 8.3 mg/dL (8.4-10.2) L 11/25/16 16:02
[2016-11-26] MEDS ORDERED: HEPARIN 10,000 UNITS/10 ML ONE (09:38)
[2016-11-26] MEDS ORDERED: HEPARIN/NS 5000 UNIT/500ML(CATH LAB) 1,000 ML IR ONE (09:38)
[2016-11-26] MEDS ORDERED: BENADRYL ONE (09:59)
[2016-11-26] MEDS ORDERED: K-DUR PO ONE ×2 (10:00→15:00)
[2016-11-26] MEDS ORDERED: PEPCID IV ONE (10:03)
[2016-11-26] MEDS ORDERED: VERSED ONE ×2 (10:08→10:56)
[2016-11-26] MEDS ORDERED: NACL 0.9% 250ML 250 ML ONE (10:08)
[2016-11-26] MEDS ORDERED: VANCOMYCIN/NS 1 GM/250 ML 1 GM/250 ML BAG IV ONE (10:30)
[2016-11-26] MEDS ORDERED: HEPARIN/NS 5000 UNIT/500ML(CATH LAB) 500 ML IR ONE (10:42)
[2016-11-26] MEDS: XYLOCAINE 2% INFILTRATI ONE ×2 (10:43→11:18)
[2016-11-26] MEDS: SUBLIMAZE ONE ×2 (10:44→11:19)
[2016-11-26] MEDS ORDERED: CATHFLO ONE (10:50)
[2016-11-26] MEDS ORDERED: WATER FOR INJ (PF) 10 ML ONE (10:50)
--- NOTE | 2016-11-26 11:50 | Progress Note ---
Assessment and Plan Assessment and plan: AV fistula occlusion. Patient for declotting per vascular surgery. ESRD. Continue hemodialysis per nephrology. Chronic hypotension. Continue Midodrine. History Interval history: No new issues overnight. Hospitalist Physical - Constitutional Vitals: Temp Pulse Resp BP Pulse Ox 98.1 F 76 18 96/48 98 11/26/16 09:30 11/26/16 09:30 11/26/16 09:30 11/26/16 09:30 11/26/16 09:30 General appearance: Present: no acute distress, well-nourished - EENT Eyes: Present: PERRL, EOM intact ENT: hearing intact, clear oral mucosa, dentition normal - Neck Neck: Present: supple, normal ROM - Respiratory Respiratory effort: normal Respiratory: bilateral: CTA - Cardiovascular Rhythm: regular Heart Sounds: Present: S1 & S2. Absent: gallop, rub - Extremities Extremities: no ischemia, No edema, Full ROM - Abdominal General gastrointestinal: soft, non-tender, non-distended, normal bowel sounds - Integumentary Integumentary: Present: clear, warm, dry - Neurologic Neurologic: CNII-XII intact, moves all extremities Results - Labs CBC & Chem 7: 11/25/16 16:02 11/25/16 16:02 Labs: Laboratory Last Values WBC 6.7 K/mm3 (4.5-11.0) 11/25/16 16:02 RBC 3.06 M/mm3 (3.65-5.03) L 11/25/16 16:02 Hgb 9.9 gm/dl (10.1-14.3) L 11/25/16 16:02 Hct 29.8 % (30.3-42.9) L 11/25/16 16:02 MCV 97 fl (79-97) 11/25/16 16:02 MCH 32 pg (28-32) 11/25/16 16:02 MCHC 33 % (30-34) 11/25/16 16:02 RDW 18.7 % (13.2-15.2) H 11/25/16 16:02 Plt Count 270 K/mm3 (140-440) 11/25/16 16:02 Lymph % (Auto) 13.2 % (13.4-35.0) L 11/25/16 16:02 [place] % (Auto) 6.3 % (0.0-7.3) 11/25/16 16:02 Eos % (Auto) 2.4 % (0.0-4.3) 11/25/16 16:02 Baso % (Auto) 0.9 % (0.0-1.8) 11/25/16 16:02 Lymph # 0.9 K/mm3 (1.2-5.4) L 11/25/16 16:02 [place] # 0.4 K/mm3 (0.0-0.8) 11/25/16 16:02 Eos # 0.2 K/mm3 (0.0-0.4) 11/25/16 16:02 Baso # 0.1 K/mm3 (0.0-0.1) 11/25/16 16:02 Seg Neutrophils % 77.2 % (40.0-70.0) H 11/25/16 16:02 Seg Neutrophils # 5.2 K/mm3 (1.8-7.7) 11/25/16 16:02 Sodium 132 mmol/L (137-145) L 11/25/16 16:02 Potassium 2.9 mmol/L (3.6-5.0) L* D 11/25/16 16:02 Chloride 86.0 mmol/L (98-107) L 11/25/16 16:02 Carbon Dioxide 21 mmol/L (22-30) L 11/25/16 16:02 Anion Gap 28 mmol/L 11/25/16 16:02 BUN 14 mg/dL (7-17) 11/25/16 16:02 Creatinine 7.5 mg/dL (0.7-1.2) H 11/25/16 16:02 Estimated GFR 6 ml/min 11/25/16 16:02 BUN/Creatinine Ratio 1.86 % 11/25/16 16:02 Glucose 190 mg/dL (65-100) H 11/25/16 16:02 Calcium 8.3 mg/dL (8.4-10.2) L 11/25/16 16:02 Troponin T 0.014 ng/mL (0.00-0.029) 11/25/16 22:11
[2016-11-26] MEDS ORDERED: SUBLIMAZE ONE (11:53)
--- NOTE | 2016-11-26 13:20 | Operative Report ---
Operative Report Operative Report: Procedure: 1. Angiography of a left upper extremity brachial basilic fistula. 2. Pharmacologic thrombectomy of the AV fistula with TPA. 3. Mechanical thrombectomy with a Trerotola device. 4. Balloon angioplasty of the left upper extremity fistula. 5. Ultrasound-guided antegrade puncture of the left basilic vein. 6. Ultrasound-guided retrograde puncture of the left basilic vein. Date of Procedure: 11/26/2016 History/Indication: 71-year-old female with a left upper extremity brachial basilic fistula, which was recently found to be clotted during dialysis. Physician: Natalie Ayala MD Technique/Procedural Details: The patient was placed in the supine position on the procedure table. A timeout was performed. Sonographic evaluation of the left upper extremity fistula was performed, and permanent images were acquired. Local anesthetic was administered. Under continuous ultrasound guidance, the fistula was accessed in a central direction, adjacent to the anastomosis. The 21-gauge access needle was exchanged for a 4 [place] exchange dilator over an 018 wire. A Carlos wire was advanced, and a 7 [place] short vascular sheath was placed. Through the sheath, a combination of the Carlos wire and a 4 [place] vertebral catheter were advanced into the central venous circulation. Central venography was performed. Thereafter, 4 mg of TPA was mixed with a small amount of contrast. tPA was injected throughout the clotted portion of the graft via the 4 [place] vertebral catheter. After approximately 5 minutes of dwell time, the vertebral catheter was removed. A Treorotola device was inserted, and mechanical thrombectomy was performed throughout the fistula. Thereafter, a Fogerty balloon was inserted and swept centrally. Angiography of the fistula was performed. Angioplasty of an indwelling axillary vein stent was performed with a 10 mm balloon. In a similar fashion as above, the fistula was accessed in a retrograde fashion , towards the anastomosis. The vertebral catheter and Carlos wire were used to traverse the arterial anastomosis. Arteriography was performed. The arterial sheath was removed, and hemostasis was achieved in with a 3-0 Vicryl pursestring suture. The centrally directed sheath was slightly retracted, and the Trerotola device was once again used to address a small area of narrowing adjacent to the 7 [place] sheath, which had not been previously seen. Thereafter, angioplasty with an 8 mm x 2 cm balloon was performed. Repeat angiography was performed, and the 7 [place] sheath was removed. Hemostasis was achieved with a pursestring suture. Sterile dressings were placed, and the patient tolerated the procedure well without immediate complication. Discussion: 1. Patent central veins. 2. Preintervention, there is clot seen throughout the fistula, including within an indwelling axillary vein stent. 3. After mechanical and pharmacologic thrombectomy as above, there is excellent flow throughout the fistula, without evidence of residual clot. 4. Areas of narrowing within the stent, and more peripherally near the anastomosis, were addressed with balloon angioplasty. Complete patency was restored near the stent. There is a mild, residual 15% narrowing of the fistula near the anastomosis. 5. A palpable thrill was restored at the end of the case. Specimen: None EBL: <5 cc
[2016-11-26 14:11] LABS: BUN/Creatinine Ratio 1.95; Calcium 7.9 mg/dL (8.4-10.2); Chloride 93.5 mmol/L (98-107); Magnesium 1.5 mg/dL (1.7-2.3); Potassium 3.1 mmol/L (3.6-5.0)
[2016-11-26] MEDS: PROAMATINE PO SCH ×2 (14:28→23:57)
[2016-11-26] MEDS: FEOSOL PO SCH ×2 (14:28→23:57)
[2016-11-26] MEDS: VITAMIN D3 PO SCH (14:29)
[2016-11-26] MEDS: SODIUM BICARBONATE PO SCH ×2 (14:29→23:57)
[2016-11-26] MEDS: ZOLOFT PO SCH (14:29)
[2016-11-26] MEDS: FLORINEF PO SCH ×2 (14:30→23:57)
[2016-11-26] MEDS: PERCOCET 5/325 PO PRN (20:06)
[2016-11-26] MEDS ORDERED: DESYREL PO SCH (22:00)
[2016-11-26] MEDS ORDERED: NACL 0.9% 100 ML IV PRN (22:02)
[2016-11-27] MEDS: PERCOCET 5/325 PO PRN (04:57)
--- NOTE | 2016-11-27 08:36 | Discharge Summary ---
Providers - Providers Date of Admission: 11/25/16 23:07 Date of discharge: 11/27/16 Attending physician: CARRIE MILLER Primary care physician: CONOR BECKMAN MD Hospitalization Reason for admission: clotted HD access Condition: Good Hospital course: This is a 71-year-old female with significant past medical history of ESRD on hemodialysis who presented to the emergency department with a left upper extremity brachial basilic fistula that was found to be clotted during hemodialysis. The patient was seen by vascular surgery in consultation and underwent mechanical and pharmacological thrombectomy with subsequent excellent flow through the fistula without evidence of residual clot. Patient underwent hemodialysis without any count cases. Patient is felt to have received maximal hospital benefit. Dedicated discharge time 31 minutes. Disposition: DC-01 TO HOME OR SELFCARE Time spent for discharge: 31 Core Measure Documentation - Palliative Care Palliative Care/ Comfort Measures: Not Applicable - Core Measures Any of the following diagnoses?: none Exam - Constitutional Vitals: Temp Pulse Resp BP Pulse Ox 97.4 F L 72 20 111/56 100 11/27/16 04:18 11/27/16 04:18 11/27/16 04:18 11/27/16 04:18 11/27/16 04:18 General appearance: Present: no acute distress, well-nourished - EENT Eyes: Present: PERRL ENT: hearing intact, clear oral mucosa - Neck Neck: Present: supple, normal ROM - Respiratory Respiratory effort: normal Respiratory: bilateral: CTA - Cardiovascular Heart Sounds: Present: S1 & S2. Absent: rub, click - Extremities Extremities: pulses symmetrical, No edema Peripheral Pulses: within normal limits - Abdominal General gastrointestinal: Present: soft, non-tender, non-distended, normal bowel sounds Female genitourinary: Present: normal - Integumentary Integumentary: Present: clear, warm, dry - Musculoskeletal Musculoskeletal: gait normal, strength equal bilaterally - Psychiatric Psychiatric: appropriate mood/affect, intact judgment & insight - Neurologic Neurologic: CNII-XII intact, moves all extremities Plan Activity: no restrictions Weight Bearing Status: Full Weight Bearing Diet: renal Follow up with: CONOR BECKMAN MD [Primary Care Provider] - 3-5 Days LUKE YBARRA MD [Staff Physician] - 7 Days
[2016-11-27] MEDS: PHOSLO PO SCH ×2 (09:00→15:33)
[2016-11-27] MEDS: SODIUM BICARBONATE PO SCH (10:00)
[2016-11-27] MEDS: VITAMIN D3 PO SCH (10:00)
[2016-11-27] MEDS: FEOSOL PO SCH (10:00)
[2016-11-27] MEDS: ZOLOFT PO SCH (10:00)
[2016-11-27] MEDS: FLORINEF PO SCH (10:00)
--- NOTE | 2016-11-27 10:23 | Consultation ---
History of Present Illness - Reason for Consult Consult date: 11/27/16 Medications and Allergies Allergies Allergy/AdvReac Type Severity Reaction Status Date / Time Barbiturates Allergy Hives Verified 11/20/16 20:26 Iodine and Iodide Containing Allergy Hives Verified 11/20/16 20:26 Produc cosmo Allergy Swelling Verified 11/20/16 20:26 penicillin Allergy Swelling Verified 11/20/16 20:26 HORSES Allergy Swelling Uncoded 11/20/16 20:26 CATS AdvReac Unknown Uncoded 11/20/16 20:26 Home Medications Medication Instructions Recorded Confirmed Last Taken Type Ferrous Sulfate [Feosol 325 MG tab] 325 mg PO BID 09/07/16 11/26/16 11/20/16 History traZODone [Desyrel] 50 mg PO QHS 09/07/16 11/26/16 11/19/16 History Acetaminophen [Acetaminophen TAB] 325 mg PO Q4H PRN #30 tablet 09/08/1611/20/16 Rx Sodium Bicarbonate 650 mg PO BID #60 tablet 09/08/16 11/26/16 11/20/16 Rx Zolpidem [Ambien] 5 mg PO QHS PRN #30 tablet 09/08/16 11/26/16 11/19/16 Rx Calcium Acetate 2,001 mg PO TID #90 capsule 11/25/16 11/26/16 Unknown Rx Cholecalciferol Vit D3 [Vitamin D3] 1,000 unit PO DAILY #30 tablet 11/25/16 Unknown Rx Fludrocortisone [Florinef] 0.1 mg PO BID #60 tablet 11/25/16 11/26/16 Unknown Rx Midodrine [Proamatine] 10 mg PO BID #60 tablet 11/25/16 11/26/16 Unknown Rx Sertraline [Zoloft] 25 mg PO QDAY #30 tablet 11/25/16 11/26/16 Unknown Rx oxyCODONE /ACETAMINOPHEN [Percocet 1 tab PO Q6H PRN #12 tablet 11/25/16 Unknown Rx 5/325 mg] Active Meds: Active Medications Acetaminophen (Tylenol) 650 mg PO Q4H PRN PRN Reason: For Pain/Fever/Headache Calcium Acetate (Phoslo) 2,001 mg PO TIDWM [facility] Last Admin: 11/26/16 18:25 Dose: Not Given Cholecalciferol (Vitamin D3) 1,000 unit PO DAILY [facility] Last Admin: 11/26/16 14:29 Dose: 1,000 unit Ferrous Sulfate (Feosol) 325 mg PO BID [facility] Last Admin: 11/26/16 23:57 Dose: 325 mg Fludrocortisone Acetate (Florinef) 0.1 mg PO BID [facility] Last Admin: 11/26/16 23:57 Dose: 0.1 mg Sodium Chloride (Nacl 0.9%) 100 mls @ 999 mls/hr IV PHAN PRN PRN Reason: Hypotension Influenza Virus Vaccine Quadrival (Fluarix Quad [id number](36 Mos+)) 0.5 ml IM .ONCE ONE Stop: 11/27/16 12:01 Latanoprost (Xalatan 0.005%) 1 drops OU QHS [facility] Midodrine (Proamatine) 10 mg PO BID [facility] Last Admin: 11/26/16 23:57 Dose: 10 mg Morphine Sulfate (Morphine) 2 mg IV Q4H PRN PRN Reason: Pain, Moderate (4-6) Ondansetron HCl (Zofran) 4 mg IV Q8H PRN PRN Reason: Nausea And Vomiting Oxycodone/Acetaminophen (Percocet 5/325) 1 tab PO Q6H PRN PRN Reason: Pain, Moderate (4-6) Last Admin: 11/27/16 04:57 Dose: 1 tab Sertraline HCl (Zoloft) 25 mg PO QDAY [facility] Last Admin: 11/26/16 14:29 Dose: 25 mg Sodium Bicarbonate (Sodium Bicarbonate) 650 mg PO BID [facility] Last Admin: 11/26/16 23:57 Dose: 650 mg Temazepam (Restoril) 15 mg PO QHS PRN PRN Reason: Insomnia Exam - Vital Signs Vital signs: Vital Signs Temp Pulse Resp BP Pulse Ox 98.4 F 106 H 18 99/62 99 11/25/16 15:42 11/25/16 15:42 11/25/16 15:42 11/25/16 15:42 11/25/16 15:42 Results - Lab Results 11/25/16 16:02 11/26/16 12:54 Most recent lab results Calcium 7.9 mg/dL (8.4-10.2) L 11/26/16 12:54 Magnesium 1.50 mg/dL (1.7-2.3) L 11/26/16 12:54
[2016-11-27] MEDS: PROAMATINE PO SCH (10:52)
--- NOTE | 2016-11-27 10:53 | Vascular Lab Report ---
MISCELLANEOUS VESSEL IDENTIFICATION: The arteriovenous access was identified in the left upper extremity and under real-time ultrasound guidance was cannulated. IMPRESSION: Successful ultrasound guided cannulation of the arteriovenous access site.
[2016-11-27] MEDS ORDERED: Fluarix Quad 2017-2018(36 MOS+) IM ONE (12:00)
--- NOTE | 2016-11-27 13:18 | Progress Note ---
Assessment and Plan Impression * End stage renal disease * Malfunctioning AVG * Hypotension, chronic * Hypokalemia Plan: * Hemodialysis today; UF as tolerated * Adjust K bath with dialysis * Epogen for goal Hb 10-12 * Liberalize diet * Stable for d/c from a renal standpoint Subjective Date of service: 11/27/16 Interval history: Patient seen on dialysis. She has no complaints. Objective - Vital Signs Vital signs: Vital Signs - 12hr 11/27/16 11/27/16 11/27/16 02:00 04:18 09:20 Temperature 97.4 F L 98.3 F Pulse Rate 80 72 70 Respiratory 20 16 Rate Blood Pressure 111/56 97/31 O2 Sat by Pulse 100 100 Oximetry 11/27/16 11/27/16 11/27/16 09:21 10:10 10:20 Temperature 98.3 F Pulse Rate 71 70 72 Respiratory 18 Rate Blood Pressure 105/55 91/45 O2 Sat by Pulse 100 Oximetry 11/27/16 11/27/16 11/27/16 10:30 10:45 11:00 Temperature Pulse Rate 72 70 72 Respiratory Rate Blood Pressure 85/44 98/45 104/46 O2 Sat by Pulse Oximetry 11/27/16 11/27/16 11:15 11:30 Temperature Pulse Rate 70 72 Respiratory Rate Blood Pressure 105/48 102/46 O2 Sat by Pulse Oximetry - General Appearance General appearance: well-developed, well-nourished EENT: ATNC Respiratory: Present: Clear to Ascultation Cardiology: regular, S1S2 Gastrointestinal: normal Neurologic: no focal deficit Musculoskeletal: other (no edema) Psychiatric: cooperative - Lab 11/25/16 16:02 11/26/16 12:54 Most recent lab results Calcium 7.9 mg/dL (8.4-10.2) L 11/26/16 12:54 Magnesium 1.50 mg/dL (1.7-2.3) L 11/26/16 12:54
[2016-11-27 13:31] VITALS: BP 99/54
[2016-11-27] MEDS ORDERED: XALATAN 0.005% OU SCH (22:00)
== END 2016-11-27 18:14 | disposition home or self-care (01) | DRG 252 ==
LOC: ED 15:37 → 4A 23:07
PROVIDERS: ADMIT Internal Medicine; ATTEND Hospitalist
PROC: 5A1D00Z (ICD-10-PCS; 2016-11-25)
PROC: 03C83ZZ Extirpation of Matter from Left Brachial Artery, Percutaneous Approach (ICD-10-PCS; principal; 2016-11-26)
PROC: 03C83ZZ Extirpation of Matter from Left Brachial Artery, Percutaneous Approach (ICD-10-PCS; 2016-11-26)
PROC: 037Y3ZZ Dilation of Upper Artery, Percutaneous Approach (ICD-10-PCS; 2016-11-26)
PROC: B51W1ZZ Fluoroscopy of Dialysis Shunt/Fistula using Low Osmolar Contrast (ICD-10-PCS; 2016-11-26)
PROC: 3E03317 Introduction of Other Thrombolytic into Peripheral Vein, Percutaneous Approach (ICD-10-PCS; 2016-11-26)
DX: T82.868A Thrombosis due to vascular prosthetic devices, implants and grafts, initial encounter (principal); N18.6 End stage renal disease; I13.2 Hypertensive heart and chronic kidney disease with heart failure and with stage 5 chronic kidney disease, or end stage renal disease; K50.90 Crohn's disease, unspecified, without complications; E87.6 Hypokalemia; I50.9 Heart failure, unspecified; N20.0 Calculus of kidney; Y83.8 Other surgical procedures as the cause of abnormal reaction of the patient, or of later complication, without mention of misadventure at the time of the procedure; J44.9 Chronic obstructive pulmonary disease, unspecified; D63.1 Anemia in chronic kidney disease; I95.89 Other hypotension; F32.9 Major depressive disorder, single episode, unspecified; F41.9 Anxiety disorder, unspecified; Y92.89 Other specified places as the place of occurrence of the external cause; Z88.0 Allergy status to penicillin; Z88.8 Allergy status to other drugs, medicaments and biological substances; Z79.899 Other long term (current) drug therapy; Z91.041 Radiographic dye allergy status; Z91.018 Allergy to other foods; Z91.09 Other allergy status, other than to drugs and biological substances
CPT/HCPCS: 36415; 36905; 76937; 80048; 82533; 83735; 84484; 85025; 90686; 96374; C1725; C1751; C1757; C1769; C1894; J1200; J1644; J2250; J2930; J2997; J3010; J3370; J3480; J7030; J7050; Q9967

== ENCOUNTER 2016-12-16 17:43 | Inpatient (IN) | payer MEDICARE ==
[2016-12-16 19:25] LABS: Basophils % (Auto) 0.8 % (0.0-1.8); Eosinophils % (Auto) 4.7 % (0.0-4.3); Hematocrit 31.3 % (30.3-42.9); Hemoglobin 10.3 gm/dl (10.1-14.3); Mean Corpuscular HGB Conc 33 % (30-34); Mean Corpuscular Hemoglobin 33 pg (28-32); Mean Corpuscular Volume 99 fl (79-97); Platelet Count 149 K/mm3 (140-440); Red Blood Count 3.15 M/mm3 (3.65-5.03); Red Cell Distribution Width 19.4 % (13.2-15.2); White Blood Count 4.7 K/mm3 (4.5-11.0)
[2016-12-16 19:35] LABS: INR 0.88 (0.87-1.13)
[2016-12-16 19:36] LABS: Partial Thromboplastin Time 28.4 Sec. (24.2-36.6)
[2016-12-16 19:37] LABS: Calcium 7.9 mg/dL (8.4-10.2); Chloride 94.6 mmol/L (98-107); Potassium 3.2 mmol/L (3.6-5.0)
--- NOTE | 2016-12-16 23:23 | Emergency Department Report ---
HPI - General Chief Complaint: Medical Clearance Time Seen by Provider: 12/16/16 23:07 - HPI HPI: This is a 71 year-old female presents to the emergency department, sent in by her dialysis center, for a clogged left upper extremity fistula. The patient is end-stage renal disease on dialysis on Wednesday/Wednesday /Wednesday. She was unable to have the dialysis session today but didcomplete it last Wednesday. She denies any chest pain, shortness of breath, nausea, vomiting, abdominal pain. She also has a past medical history of CHF, COPD, hypertension , Crohn's disease. Her refrigeration engine operator is Dr. Sales. The daughter later says that the patient was recently diagnosed with some level of dementia and occasionally has had some "run-ins" with vascular access centers and therefore they have trouble finding a place where she can get her fistula fixed. ED Past Medical Hx - Past Medical History Previous Medical History?: Yes Hx Hypertension: Yes Hx Heart Attack/AMI: No Hx Congestive Heart Failure: Yes Hx Renal Disease: Yes (M, W, F) Hx Kidney Stones: Yes Hx Asthma: Yes Hx COPD: Yes Hx Dementia: Yes Hx HIV: No Additional medical history: ileostomy, Crohn's versus ulcerative colitis, hypotension - Surgical History Past Surgical History?: Yes Additional Surgical History: ileostomy. fistula to LUE - Social History Smoking Status: Never Smoker Substance Use Type: Marijuana - Medications Home Medications: Home Medications Medication Instructions Recorded Confirmed Last Taken Type Ferrous Sulfate [Feosol 325 MG tab] 325 mg PO BID 09/07/16 11/26/16 11/20/16 History traZODone [Desyrel] 50 mg PO QHS 09/07/16 11/26/16 11/19/16 History Acetaminophen [Acetaminophen TAB] 325 mg PO Q4H PRN #30 tablet 09/08/1611/20/16 Rx Sodium Bicarbonate 650 mg PO BID #60 tablet 09/08/16 11/26/16 11/20/16 Rx Zolpidem [Ambien] 5 mg PO QHS PRN #30 tablet 09/08/16 11/26/16 11/19/16 Rx Calcium Acetate 2,001 mg PO TID #90 capsule 11/25/16 11/26/16 Unknown Rx Cholecalciferol Vit D3 [Vitamin D3] 1,000 unit PO DAILY #30 tablet 11/25/16 Unknown Rx Fludrocortisone [Florinef] 0.1 mg PO BID #60 tablet 11/25/16 11/26/16 Unknown Rx Midodrine [Proamatine] 10 mg PO BID #60 tablet 11/25/16 11/26/16 Unknown Rx Sertraline [Zoloft] 25 mg PO QDAY #30 tablet 11/25/16 11/26/16 Unknown Rx oxyCODONE /ACETAMINOPHEN [Percocet 1 tab PO Q6H PRN #12 tablet 11/25/16 Unknown Rx 5/325 mg] ED Review of Systems ROS: Stated complaint: ACCESS CLOGGED FROM DIALYSIS Other details as noted in HPI Comment: All other systems reviewed and negative Constitutional: denies: chills, fever Eyes: denies: eye pain, eye discharge, vision change ENT: denies: ear pain, throat pain Respiratory: denies: cough, shortness of breath, wheezing Cardiovascular: denies: chest pain, palpitations Gastrointestinal: denies: abdominal pain, nausea, diarrhea Genitourinary: denies: urgency, dysuria, discharge Musculoskeletal: denies: back pain, joint swelling, arthralgia Skin: denies: rash, lesions Neurological: denies: headache, weakness, paresthesias Physical Exam - Physical Exam Vital Signs: Vital Signs 12/16/16 18:45 Temperature 98.2 F Pulse Rate 69 Respiratory 20 Rate Blood Pressure 102/59 O2 Sat by Pulse 100 Oximetry Physical Exam: GENERAL: The patient is well-developed well-nourished. HENT: Normocephalic. Atraumatic. Patient has moist mucous membranes. EYES: Extraocular motions are intact. Pupils equal reactive to light bilaterally. NECK: Supple. Trachea is midline. CHEST/LUNGS: Clear to auscultation. There is no respiratory distress noted. HEART/CARDIOVASCULAR: Regular. There is no tachycardia. There is no gallop rub or murmur. ABDOMEN: Abdomen is soft, nontender. Patient has normal bowel sounds. There is no abdominal distention. SKIN: Skin is warm and dry. NEURO: The patient is awake, alert. The patient is cooperative. The patient has no focal neurologic deficits. The patient has normal speech. MUSCULOSKELETAL: There is no tenderness or deformity. There is no limitation range of motion. There is no evidence of acute injury. There is a palpable dialysis fistula to the left upper extremity that is not appear patent at this time. There feels like there is a slight palpable thrill but it is very mild. Radial pulse +2 over 4 bilaterally. Cap refill less than 2 seconds. ED Course Vital Signs 12/16/16 18:45 Temperature 98.2 F Pulse Rate 69 Respiratory 20 Rate Blood Pressure 102/59 O2 Sat by Pulse 100 Oximetry - Consultations Consultation #1: I spoke to the patient's refrigeration engine operator, Dr. Sales, who agrees with the plan for admission to see vascular for some type of repair or intervention regarding her malfunctioned dialysis fistula. 12/16/16 23:27 ED Medical Decision Making - Lab Data Result diagrams: 12/16/16 19:07 12/16/16 19:07 - Medical Decision Making 71-year-old female presents with left upper extremity dialysis fistula appears to have malfunctioned. She was unable to get her dialysis today. Despite that , her blood pressure is reasonable and there is no hyperkalemia. She has no physical complaints at this time. She will be admitted to the hospital for further evaluation from nephrology, evaluation of the dialysis fistula by vascular and has been accepted for admission by the hospitalist, Dr Garvey. Critical Care Time: No Critical care attestation.: If time is entered above; I have spent that time in minutes in the direct care of this critically ill patient, excluding procedure time. ED Disposition Clinical Impression: ESRD (end stage renal disease), Hypokalemia Dialysis AV fistula malfunction Qualifiers: Encounter type: initial encounter Qualified Code(s): T82.590A - Other mechanical complication of surgically created arteriovenous fistula, initial encounter Disposition: OP ADMIT IP TO THIS HOSP Is pt being admited?: Yes Condition: Stable Referrals: PRIMARY CARE,MD [Primary Care Provider] - 3-5 Days Time of Disposition: 23:29
[2016-12-17] MEDS ORDERED: MORPHINE IV PRN (00:35)
[2016-12-17] MEDS ORDERED: ZOFRAN PO PRN (00:35)
[2016-12-17] MEDS ORDERED: TYLENOL PO PRN (00:35)
[2016-12-17] MEDS: AMBIEN PO PRN (01:57)
[2016-12-17] MEDS: PERCOCET 5/325 PO PRN ×3 (04:32→21:16)
[2016-12-17] MEDS ORDERED: PERCOCET 5/325 ONE (04:37)
--- NOTE | 2016-12-17 04:47 | History and Physical Report ---
CHIEF COMPLAINT: Clogging of the left arteriovenous dialysis fistula on the left upper extremity. HISTORY OF PRESENT ILLNESS: The patient is a 71-year-old female on dialysis, who went for dialysis, they could not get dialyzed because of blockage of AV fistula in the left upper extremity. The patient denies history of pain at the site. Denied history of fever or chills, nausea or vomiting. She states that she was told by the aeronautical products sales engineer and the dialysis team to come to the Emergency Room for evaluation and treatment of the clogged AV fistula. PAST MEDICAL HISTORY: Pertinent for dementia, COPD, asthma, kidney stone, end-stage renal disease, on dialysis on Mondays, Wednesdays, and Fridays, congestive heart failure, hypertension. No coronary artery disease. PAST SURGICAL HISTORY: Pertinent for AV fistula in the left upper extremity, ileostomy. FAMILY HISTORY: Noncontributory. SOCIAL HISTORY: The patient lives with family. Does not smoke cigarettes, but smokes marijuana and does not drink alcohol. MEDICATIONS: The patient is on ferrous sulfate 325 mg by mouth twice daily, trazodone 50 mg by mouth at bedtime, Tylenol 325 mg by mouth every 4 hours as needed for fever and headache, sodium bicarbonate 650 mg by mouth twice daily, Ambien 5 mg by mouth at bedtime, calcium acetate 2001 mg by mouth 3 times daily, vitamin D3 1000 units p.o. daily, Florinef 0.1 mg p.o. b.i.d., Midodrine 10 mg p.o. b.i.d., sertraline 25 mg by mouth daily, Percocet 1 tablet by mouth every 6 hours as needed for pain with strength of 5/325. ALLERGIES: THE PATIENT IS ALLERGIC TO BARBITURATES, IODINE CONTAINING PRODUCTS, VINNY. REVIEW OF SYSTEMS: CONSTITUTIONAL: There is no fever, no chills, no diaphoresis. HEENT: There is no headache or sore throat. CARDIOVASCULAR SYSTEM: There is no chest pain or orthopnea. There is blockage of the AV fistula on the left upper extremity. RESPIRATORY: There is no shortness of breath or cough. GASTROINTESTINAL SYSTEM: There is no nausea, no vomiting, no abdominal pain, diarrhea or constipation. NEUROLOGICAL SYSTEM: There is no numbness. No dizziness. No altered mental status. MUSCULOSKELETAL SYSTEM: Show no joint pain or swelling. DERMATOLOGICAL SYSTEM: Show no skin rash or itching. GENITOURINARY SYSTEM: Showed no dysuria, hematuria, or flank pain. Rest of system review is normal. PHYSICAL EXAMINATION: GENERAL: At the time of exam, the patient was found to be alert, oriented x 3 and not in acute distress. VITAL SIGNS: Shows temperature of 98.1 degrees Fahrenheit, pulse of 81, respirations 18, blood pressure 110/78, O2 sat of 98% on room air. HEENT: Shows pupils to be equal, round, reactive to light and accommodating. Extraocular muscles are intact. NECK: Supple with no JVD or carotid bruit. CARDIOVASCULAR SYSTEM: Show first and second heart sounds with no gallops or murmurs. RESPIRATORY SYSTEM: Showed good air entry on both sides of the lung with no abnormal breath sounds. GASTROINTESTINAL SYSTEM: Show abdomen to be full, soft, nontender with no organomegaly or rigidity. NEUROLOGIC: Shows no focal deficit. MUSCULOSKELETAL: Show no joint swelling or tenderness. DERMATOLOGICAL: Showing no skin rash. GENITOURINARY: Showing no costovertebral angle tenderness. PERTINENT LABORATORY AND IMAGING STUDIES: The patient has CBC done with normal white count, normal hemoglobin, and normal hematocrit with differential showing elevated monocyte and elevated eosinophils, normal segmental neutrophils. Coagulation study was unremarkable. Chemistry showed low potassium of 3.2, low sodium of 132, low chloride of 94.6, low CO2 of 21, elevated BUN of 31 and elevated creatinine of 9.2. IMAGING STUDIES: No imaging studies were done at this time. DIAGNOSIS: Clogged left upper extremity arteriovenous dialysis fistula. PLAN: The patient will be admitted to medical floor and will continue vascular surgical consult with ordered by the Emergency Room physician as well as Nephrology consult with Dr. Sales ordered by the Emergency Room physician already. The patient will be on Tylenol 650 mg by mouth every 4 hours for fever and headache and will be on IV Zofran 4 mg every 8 hours as needed for nausea and vomiting. The patient was to be on IV morphine 2 mg every 4 hours as needed for pain and will be on her home medications as shown in the medication reconciliation section. Further management of the patient's condition will be dependent on the 2 consults with the vascular surgeon and the aeronautical products sales engineer. DVT prophylaxis will be through sequential compressive device. JOB# [id number] OCN/NTS
[2016-12-17] MEDS ORDERED: HEPARIN 10,000 UNITS/10 ML IV PRN ×2 (07:39→08:00)
--- NOTE | 2016-12-17 07:39 | Consultation ---
History of Present Illness - Reason for Consult Consult date: 12/17/16 end stage renal disease - History of Present Illness Mrs. Heller is a 71yo with ESRD on HD who presented to the ED due to malfunctioning AV access as she was unable to receive dialysis treatment. At present, she has no complaints. She denies difficulty breathing, nausea and vomiting. Past History Past Medical History: ESRD, other (chronic hypotension) Past Surgical History: Other (ileostomy; AV access creation) Social history: no significant social history Family history: no significant family history Medications and Allergies Allergies Allergy/AdvReac Type Severity Reaction Status Date / Time Barbiturates Allergy Hives Verified 11/20/16 20:26 Iodine and Iodide Containing Allergy Hives Verified 11/20/16 20:26 Produc cosmo Allergy Swelling Verified 11/20/16 20:26 penicillin Allergy Swelling Verified 11/20/16 20:26 HORSES Allergy Swelling Uncoded 11/20/16 20:26 CATS AdvReac Unknown Uncoded 11/20/16 20:26 Home Medications Medication Instructions Recorded Confirmed Last Taken Type Ferrous Sulfate [Feosol 325 MG tab] 325 mg PO BID 09/07/16 12/17/16 12/17/16 History Sodium Bicarbonate 650 mg PO BID #60 tablet 09/08/16 12/17/16 12/17/16 Rx Cholecalciferol Vit D3 [Vitamin D3] 1,000 unit PO DAILY #30 tablet 11/25/1602/2112/17/16 Rx Fludrocortisone [Florinef] 0.1 mg PO BID #60 tablet 11/25/16 12/17/16 12/17/16 Rx Midodrine [Proamatine] 10 mg PO BID #60 tablet 11/25/16 12/17/16 12/17/16 Rx Sertraline [Zoloft] 25 mg PO QDAY #30 tablet 11/25/16 12/17/16 12/17/16 Rx Active Meds: Active Medications Acetaminophen (Tylenol) 650 mg PO Q4H PRN PRN Reason: Fever Calcium Acetate (Phoslo) 2,001 mg PO TIDWM IRIS Cholecalciferol (Vitamin D3) 1,000 unit PO DAILY IRIS Ferrous Sulfate (Feosol) 325 mg PO BID IRIS Fludrocortisone Acetate (Florinef) 0.1 mg PO BID IRIS Midodrine (Proamatine) 10 mg PO BID IRIS Morphine Sulfate (Morphine) 2 mg IV Q4H PRN PRN Reason: Pain, Moderate (4-6) Ondansetron HCl (Zofran) 4 mg PO Q8H PRN PRN Reason: Nausea And Vomiting Oxycodone/Acetaminophen (Percocet 5/325) 1 tab PO Q6H PRN PRN Reason: Pain, Moderate (4-6) Last Admin: 12/17/16 04:32 Dose: 1 tab Sertraline HCl (Zoloft) 25 mg PO QDAY IRIS Sodium Bicarbonate (Sodium Bicarbonate) 650 mg PO BID IRIS Trazodone HCl (Desyrel) 50 mg PO QHS IRIS Zolpidem Tartrate (Ambien) 5 mg PO QHS PRN PRN Reason: Sleep Last Admin: 12/17/16 01:57 Dose: 5 mg Review of Systems All systems: negative Exam - Vital Signs Vital signs: Vital Signs Temp Pulse Resp BP Pulse Ox 98.2 F 69 20 102/59 100 12/16/16 18:45 12/16/16 18:45 12/16/16 18:45 12/16/16 18:45 12/16/16 18:45 - General Appearance General appearance: well-developed, well-nourished EENT: ATNC Respiratory: Clear to Ascultation Heart: regular, S1S2 Gastrointestinal: Present: normal. Absent: tenderness, distended Integumentary: no rash, warm and dry Neurologic: alert and oriented x3 Psychiatric: cooperative Results - Lab Results 12/16/16 19:07 12/16/16 19:07 Most recent lab results Calcium 7.9 mg/dL (8.4-10.2) L 12/16/16 19:07 Assessment and Plan Impression * End stage renal disease * Malfunctioning AVG * Hypotension, chronic * Hypokalemia Plan: * Vascular surgery consulted * Hemodialysis to follow access evaluation/fistulogram * UF as tolerated * Adjust K bath with dialysis * Epogen for goal Hb 12-17 * NPO for now
[2016-12-17] MEDS ORDERED: NACL 0.9% 100 ML IV PRN (08:00)
[2016-12-17] MEDS: PHOSLO PO SCH ×3 (09:25→18:49)
--- NOTE | 2016-12-17 09:44 | Consultation ---
History of Present Illness - Reason for Consult Consult date: 12/17/16 - History of Present Illness This is a 71-year-old female with a left upper extremity brachial basilic fistula. During her last dialysis session this week, the access was found to be clotted. I have seen her in consult today for a declotting procedure. I previously performed a declotting on her several months ago, which was successful at the time. Medications and Allergies Allergies Allergy/AdvReac Type Severity Reaction Status Date / Time Barbiturates Allergy Hives Verified 11/20/16 20:26 Iodine and Iodide Containing Allergy Hives Verified 11/20/16 20:26 Produc cosmo Allergy Swelling Verified 11/20/16 20:26 penicillin Allergy Swelling Verified 11/20/16 20:26 HORSES Allergy Swelling Uncoded 11/20/16 20:26 CATS AdvReac Unknown Uncoded 11/20/16 20:26 Home Medications Medication Instructions Recorded Confirmed Last Taken Type Ferrous Sulfate [Feosol 325 MG tab] 325 mg PO BID 09/07/16 12/17/16 12/17/16 History Sodium Bicarbonate 650 mg PO BID #60 tablet 09/08/16 12/17/16 12/17/16 Rx Cholecalciferol Vit D3 [Vitamin D3] 1,000 unit PO DAILY #30 tablet 11/25/1602/2112/17/16 Rx Fludrocortisone [Florinef] 0.1 mg PO BID #60 tablet 11/25/16 12/17/16 12/17/16 Rx Midodrine [Proamatine] 10 mg PO BID #60 tablet 11/25/16 12/17/16 12/17/16 Rx Sertraline [Zoloft] 25 mg PO QDAY #30 tablet 11/25/16 12/17/16 12/17/16 Rx Active Meds: Active Medications Acetaminophen (Tylenol) 650 mg PO Q4H PRN PRN Reason: Fever Calcium Acetate (Phoslo) 2,001 mg PO TIDWM [facility] Last Admin: 12/17/16 09:25 Dose: Not Given Cholecalciferol (Vitamin D3) 1,000 unit PO DAILY IRIS Ferrous Sulfate (Feosol) 325 mg PO BID IRIS Fludrocortisone Acetate (Florinef) 0.1 mg PO BID [facility] Heparin Sodium (Porcine) (Heparin 10,000 Units/10 Ml) 1,000 unit IV PHAN PRN PRN Reason: hemodialysis Heparin Sodium (Porcine) (Heparin 10,000 Units/10 Ml) 500 unit IV PHAN PRN PRN Reason: hemodialysis Sodium Chloride (Nacl 0.9%) 100 mls @ 999 mls/hr IV PHAN PRN PRN Reason: Hypotension Midodrine (Proamatine) 10 mg PO BID IRIS Morphine Sulfate (Morphine) 2 mg IV Q4H PRN PRN Reason: Pain, Moderate (4-6) Ondansetron HCl (Zofran) 4 mg PO Q8H PRN PRN Reason: Nausea And Vomiting Oxycodone/Acetaminophen (Percocet 5/325) 1 tab PO Q6H PRN PRN Reason: Pain, Moderate (4-6) Last Admin: 12/17/16 04:32 Dose: 1 tab Sertraline HCl (Zoloft) 25 mg PO QDAY IRIS Sodium Bicarbonate (Sodium Bicarbonate) 650 mg PO BID IRIS Trazodone HCl (Desyrel) 50 mg PO QHS IRIS Zolpidem Tartrate (Ambien) 5 mg PO QHS PRN PRN Reason: Sleep Last Admin: 12/17/16 01:57 Dose: 5 mg Exam - Constitutional Vitals: Temp Pulse Resp BP Pulse Ox 97.8 F 70 16 91/44 99 12/17/16 09:22 12/17/16 09:22 12/17/16 09:22 12/17/16 09:22 12/17/16 09:22 General appearance: Present: no acute distress - EENT Eyes: Present: PERRL ENT: hearing intact - Neck Neck: Present: supple - Extremities Extremities: no ischemia Extremity abnormal: other (there is no pulsatility or thrill along the left upper extremity dialysis access. The radial pulses palpable) Results - Labs CBC & Chem 7: 12/16/16 19:07 12/16/16 19:07 Assessment and Plan I will bring her down for a fistulogram and a declot procedure today. I have performed a declot on her before, and I am familiar with her dialysis access anatomy.
[2016-12-17] MEDS: ZOLOFT PO SCH (10:00)
[2016-12-17] MEDS: FLORINEF PO SCH ×2 (10:00→21:28)
[2016-12-17] MEDS: FEOSOL PO SCH ×2 (10:00→21:29)
[2016-12-17] MEDS: PROAMATINE PO SCH ×2 (10:00→21:28)
[2016-12-17] MEDS: SODIUM BICARBONATE PO SCH ×2 (10:00→21:29)
--- NOTE | 2016-12-17 11:48 | Event Note ---
Date: 12/17/16 Patient was seen and evaluated. Patient admitted this morning for clogged dialysis access and vascular surgery was consulted and will evaluated and manage her. Nephrology is on board. Manage per H/P plan.
[2016-12-17] MEDS ORDERED: HEPARIN 10,000 UNITS/10 ML ONE (11:55)
[2016-12-17] MEDS ORDERED: HEPARIN/NS 5000 UNIT/500ML(CATH LAB) 500 ML IR ONE (11:55)
[2016-12-17] MEDS ORDERED: BENADRYL ONE (11:56)
[2016-12-17] MEDS ORDERED: NACL 0.9% 250ML 0 ML ONE (11:58)
[2016-12-17] MEDS ORDERED: VANCOMYCIN/NS 1 GM/250 ML 1 GM/250 ML BAG IV ONE (11:58)
[2016-12-17] MEDS: SUBLIMAZE ONE ×3 (12:23→13:06)
[2016-12-17] MEDS: XYLOCAINE 2% INFILTRATI ONE ×3 (12:23→13:02)
[2016-12-17] MEDS: VERSED ONE ×2 (12:23→12:30)
[2016-12-17] MEDS ORDERED: CATHFLO ONE (12:38)
[2016-12-17] MEDS ORDERED: WATER FOR INJ (PF) 10 ML ONE (12:39)
--- NOTE | 2016-12-17 14:31 | Post Operative Note ---
Pre-op diagnosis: ESRD Post-op diagnosis: same Findings: clotted LUE graft Procedure: declot Anesthesia: local Surgeon: SIXTO TOMAS Estimated blood loss: minimal Condition: stable Disposition: floor
[2016-12-17] MEDS: VITAMIN D3 PO SCH (17:10)
[2016-12-17] MEDS: DESYREL PO SCH (21:29)
[2016-12-18] MEDS: PHOSLO PO SCH ×3 (10:51→20:05)
[2016-12-18 10:52] LABS: Calcium 8.7 mg/dL (8.4-10.2); Chloride 92.3 mmol/L (98-107); Potassium 4.3 mmol/L (3.6-5.0)
[2016-12-18] MEDS: PROAMATINE PO SCH ×2 (14:32→23:50)
--- NOTE | 2016-12-18 15:01 | Progress Note ---
Assessment and Plan Impression * End stage renal disease * Malfunctioning AVG * Hypotension, chronic * Hypokalemia Plan: * Patient refused dialysis yesterday * HD ordered for today but patient again refused * Will plan for HD later today if patient agrees * UF as tolerated * Adjust K bath with dialysis * Epogen for goal Hb - Subjective Date of service: 12/18/16 Objective - Vital Signs Vital signs: Vital Signs - 12hr 12/18/16 12/18/16 04:45 08:35 Temperature 98.3 F 98.6 F Pulse Rate 81 108 H Respiratory 18 18 Rate Blood Pressure 130/61 100/49 [Right] O2 Sat by Pulse 100 99 Oximetry - Lab 12/16/16 19:07 12/18/16 10:00 Most recent lab results Calcium 8.7 mg/dL (8.4-10.2) 12/18/16 10:00
--- NOTE | 2016-12-18 16:09 | Progress Note ---
Assessment and Plan Assessment and plan: Clogged AVF - declogged by vascular surgery ESRD on hemodialysis - She will be dialyzed today - Nephrology is following Chronic hypotension - Is normal today DVT prophylaxis Disposition - Discharged tomorrow. History Interval history: Patient was seen and evaluated this morning, she does not have any complaints, she is agreed to have hemodialysis today. Hospitalist Physical - Physical exam Narrative exam: Not in cardiopulmonary distress. The patient appeared well nourished and normally developed. Vital signs as documented. Head exam is unremarkable. No scleral icterus . Neck is without jugular venous distension, thyromegaly, or carotid bruits. Lungs are clear to auscultation. Cardiac exam reveals regular rate and Rhythm. First and second heart sounds normal. No murmurs, rubs or gallops. Abdominal exam reveals normal bowel sounds, no masses, no organomegaly and no aortic enlargement. Extremities are nonedematous and both femoral and pedal pulses are normal. COATING MIXER TENDER: Alert and oriented 3. Non cooprative. - Constitutional Vitals: Temp Pulse Resp BP Pulse Ox 98.6 F 108 H 18 100/49 99 12/18/16 08:35 12/18/16 08:35 12/18/16 08:35 12/18/16 08:35 12/18/16 08:35 General appearance: Present: no acute distress Results - Labs CBC & Chem 7: 12/16/16 19:07 12/18/16 10:00 Labs: Laboratory Last Values WBC 4.7 K/mm3 (4.5-11.0) 12/16/16 19:07 RBC 3.15 M/mm3 (3.65-5.03) L 12/16/16 19:07 Hgb 10.3 gm/dl (10.1-14.3) 12/16/16 19:07 Hct 31.3 % (30.3-42.9) 12/16/16 19:07 MCV 99 fl (79-97) H 12/16/16 19:07 MCH 33 pg (28-32) H 12/16/16 19:07 MCHC 33 % (30-34) 12/16/16 19:07 RDW 19.4 % (13.2-15.2) H 12/16/16 19:07 Plt Count 149 K/mm3 (140-440) 12/16/16 19:07 Lymph % (Auto) 16.6 % (13.4-35.0) 12/16/16 19:07 Lewis % (Auto) 8.1 % (0.0-7.3) H 12/16/16 19:07 Eos % (Auto) 4.7 % (0.0-4.3) H 12/16/16 19:07 Baso % (Auto) 0.8 % (0.0-1.8) 12/16/16 19:07 Lymph # 0.8 K/mm3 (1.2-5.4) L 12/16/16 19:07 Lewis # 0.4 K/mm3 (0.0-0.8) 12/16/16 19:07 Eos # 0.2 K/mm3 (0.0-0.4) 12/16/16 19:07 Baso # 0.0 K/mm3 (0.0-0.1) 12/16/16 19:07 Seg Neutrophils % 69.8 % (40.0-70.0) 12/16/16 19:07 Seg Neutrophils # 3.3 K/mm3 (1.8-7.7) 12/16/16 19:07 PT 12.4 Sec. (12.2-14.9) 12/16/16 19:07 INR 0.88 (0.87-1.13) 12/16/16 19:07 APTT 28.4 Sec. (24.2-36.6) 12/16/16 19:07 Sodium 132 mmol/L (137-145) L 12/18/16 10:00 Potassium 4.3 mmol/L (3.6-5.0) D 12/18/16 10:00 Chloride 92.3 mmol/L (98-107) L 12/18/16 10:00 Carbon Dioxide 16 mmol/L (22-30) L 12/18/16 10:00 Anion Gap 28 mmol/L 12/18/16 10:00 BUN 50 mg/dL (7-17) H 12/18/16 10:00 Creatinine 12.7 mg/dL (0.7-1.2) H 12/18/16 10:00 Estimated GFR 4 ml/min 12/18/16 10:00 BUN/Creatinine Ratio 4 % 12/18/16 10:00 Glucose 145 mg/dL (65-100) H 12/18/16 10:00 Calcium 8.7 mg/dL (8.4-10.2) 12/18/16 10:00
[2016-12-18] MEDS: PERCOCET 5/325 PO PRN (18:33)
[2016-12-18] MEDS ORDERED: NACL 0.9% 100 ML IV PRN (19:12)
[2016-12-18] MEDS: FEOSOL PO SCH ×2 (20:03→23:50)
[2016-12-18] MEDS: SODIUM BICARBONATE PO SCH ×2 (20:04→23:51)
[2016-12-18] MEDS: FLORINEF PO SCH ×2 (20:04→23:50)
[2016-12-18] MEDS: ZOLOFT PO SCH (20:05)
[2016-12-18] MEDS: VITAMIN D3 PO SCH (20:05)
[2016-12-18] MEDS: AMBIEN PO PRN (23:50)
[2016-12-18] MEDS: DESYREL PO SCH (23:51)
[2016-12-18] MEDS: HEPARIN SUB-Q SCH (23:51)
[2016-12-19 06:59] LABS: Calcium 7.9 mg/dL (8.4-10.2); Chloride 95.9 mmol/L (98-107)
[2016-12-19] MEDS ORDERED: NACL 0.9% 250ML 250 ML IV ONE (07:42)
[2016-12-19 07:54] LABS: Potassium 4.1 mmol/L (3.6-5.0)
[2016-12-19 08:14] VITALS: BP 71/28
--- NOTE | 2016-12-19 11:06 | Discharge Summary ---
Providers - Providers Date of Admission: 12/17/16 02:14 Date of discharge: 12/19/16 Attending physician: SIMÓN DIALLO MD Primary care physician: CONOR BECKMAN MD Hospitalization Reason for admission: Clotted AVF Condition: Stable Disposition: DC-30 STILL A PATIENT Time spent for discharge: 31 minutes - Discharge Diagnoses (1) Dialysis AV fistula malfunction Status: Acute Qualifiers: Encounter type: initial encounter Qualified Code(s): T82.590A - Other mechanical complication of surgically created arteriovenous fistula, initial encounter (2) Hypokalemia Status: Acute (3) End stage renal disease on dialysis Status: Acute Core Measure Documentation - Palliative Care Palliative Care/ Comfort Measures: Not Applicable - Core Measures Any of the following diagnoses?: none Exam - Physical Exam Narrative exam: Not in cardiopulmonary distress. The patient appeared well nourished and normally developed. Vital signs as documented. Head exam is unremarkable. No scleral icterus . Neck is without jugular venous distension, thyromegaly, or carotid bruits. Lungs are clear to auscultation. Cardiac exam reveals regular rate and Rhythm. First and second heart sounds normal. No murmurs, rubs or gallops. Abdominal exam reveals normal bowel sounds, no masses, no organomegaly and no aortic enlargement. Extremities are nonedematous and both femoral and pedal pulses are normal. PROGRAM DEVELOPMENT SPECIALIST: Alert and oriented 3. Non cooprative. - Constitutional Vitals: Temp Pulse Resp BP Pulse Ox 99.0 F 82 18 70/30 98 12/19/16 00:14 12/19/16 07:40 12/19/16 07:25 12/19/16 07:40 12/19/16 07:25 Plan Activity: no restrictions Weight Bearing Status: Full Weight Bearing Diet: renal Follow up with: CONOR BECKMAN MD [Primary Care Provider] - 3-5 Days
[2016-12-19] MEDS: PERCOCET 5/325 PO PRN (12:30)
[2016-12-19] MEDS: PHOSLO PO SCH (12:34)
[2016-12-19] MEDS: FEOSOL PO SCH (12:35)
[2016-12-19] MEDS: HEPARIN SUB-Q SCH (12:36)
[2016-12-19] MEDS: FLORINEF PO SCH (12:36)
[2016-12-19] MEDS: PROAMATINE PO SCH (12:39)
[2016-12-19] MEDS: SODIUM BICARBONATE PO SCH (12:39)
[2016-12-19] MEDS: VITAMIN D3 PO SCH (12:40)
[2016-12-19] MEDS: ZOLOFT PO SCH (12:40)
--- NOTE | 2016-12-21 11:32 | Operative Report ---
Operative Report Operative Report: Procedure: 1. Angiography of a left upper extremity brachial basilic fistula. 2. Pharmacologic thrombectomy of the AV fistula with TPA. 3. Mechanical thrombectomy with a Trerotola device. 4. Balloon angioplasty of the left upper extremity fistula. 5. Ultrasound-guided antegrade puncture of the left basilic vein. 6. Ultrasound-guided retrograde puncture of the left basilic vein. Date of Procedure: 12/17/2016 History/Indication: 71-year-old female with a left upper extremity brachial basilic fistula, which was recently found to be clotted during dialysis. Physician: Natalie Ayala MD Technique/Procedural Details: The patient was placed in the supine position on the procedure table. A timeout was performed. Sonographic evaluation of the left upper extremity fistula was performed, and permanent images were acquired. Local anesthetic was administered. Under continuous ultrasound guidance, the fistula was accessed in a central direction, adjacent to the anastomosis. The 21-gauge access needle was exchanged for a 4 [place]araguan exchange dilator over an 018 wire. A Carlos wire was advanced, and a 7 [place]uan short vascular sheath was placed. Through the sheath, a combination of the Carlos wire and a 4 [place]araguan vertebral catheter were advanced into the central venous circulation. Central venography was performed. Angioplasty of the axillary vein just central to an indwelling stent was performed with a 10 mm balloon. Thereafter, 4 mg of TPA was mixed with a small amount of contrast. tPA was injected throughout the clotted portion of the graft via the 4 [place]ar[place]uan vertebral catheter. After approximately 5 minutes of dwell time, the vertebral catheter was removed. A Treorotola device was inserted, and mechanical thrombectomy was performed throughout the fistula. Thereafter, a Fogerty balloon was inserted and swept centrally. Additional balloon angioplasty of the midportion of the fistula was performed Angiography of the fistula was performed. In a similar fashion as above, the fistula was accessed in a retrograde fashion , towards the anastomosis. The centrally directed sheath was removed, and hemostasis was achieved in with a 3-0 Vicryl pursestring suture. The vertebral catheter and Carlos wire were used to traverse the arterial anastomosis. Arteriography was performed. Thereafter, angioplasty with an 7 mm x 4 cm balloon was performed adjacent to the anastomosis. Repeat angiography was performed, and the arterially directed sheath was removed. Hemostasis was achieved with a pursestring suture. Sterile dressings were placed, and the patient tolerated the procedure well without immediate complication. Discussion: 1. Patent central veins. 2. Preintervention, there is clot seen throughout the fistula, including within an indwelling axillary vein stent. 3. After mechanical and pharmacologic thrombectomy as above, there is excellent flow throughout the fistula, without evidence of residual clot. 4. Areas of narrowing within the stent, and more peripherally near the anastomosis, were addressed with balloon angioplasty. Complete patency was restored near the stent. 5. A palpable thrill was restored at the end of the case. Specimen: None EBL: <5 cc
== END 2016-12-19 13:15 | disposition home or self-care (01) | DRG 252 ==
LOC: ED 17:43 → 3A 12-17 00:33 → UNDOADMIN 12-17 00:33 → CC2 12-17 02:14 → 3A 12-17 06:50
PROVIDERS: ADMIT Internal Medicine; ATTEND Internal Medicine
PROC: 05CC3ZZ Extirpation of Matter from Left Basilic Vein, Percutaneous Approach (ICD-10-PCS; principal; 2016-12-18)
PROC: 3E03317 Introduction of Other Thrombolytic into Peripheral Vein, Percutaneous Approach (ICD-10-PCS; principal; 2016-12-18)
PROC: 057C3ZZ Dilation of Left Basilic Vein, Percutaneous Approach (ICD-10-PCS; principal; 2016-12-18)
PROC: 5A1D70Z Performance of Urinary Filtration, Intermittent, Less than 6 Hours Per Day (ICD-10-PCS; principal; 2016-12-18)
PROC: 03C83ZZ Extirpation of Matter from Left Brachial Artery, Percutaneous Approach (ICD-10-PCS; principal; 2016-12-18)
PROC: 03783ZZ Dilation of Left Brachial Artery, Percutaneous Approach (ICD-10-PCS; principal; 2016-12-18)
DX: T82.41XA Breakdown (mechanical) of vascular dialysis catheter, initial encounter (principal); N18.6 End stage renal disease; I13.2 Hypertensive heart and chronic kidney disease with heart failure and with stage 5 chronic kidney disease, or end stage renal disease; I95.9 Hypotension, unspecified; E87.6 Hypokalemia; Y84.8 Other medical procedures as the cause of abnormal reaction of the patient, or of later complication, without mention of misadventure at the time of the procedure; Y92.89 Other specified places as the place of occurrence of the external cause; J44.9 Chronic obstructive pulmonary disease, unspecified; F03.90 Unspecified dementia, unspecified severity, without behavioral disturbance, psychotic disturbance, mood disturbance, and anxiety; N20.0 Calculus of kidney; Z88.8 Allergy status to other drugs, medicaments and biological substances; F12.90 Cannabis use, unspecified, uncomplicated; Z88.0 Allergy status to penicillin; Z91.041 Radiographic dye allergy status; Z91.018 Allergy to other foods; Z91.09 Other allergy status, other than to drugs and biological substances
CPT/HCPCS: 36415; 36905; 76937; 80048; 85025; 85610; 85730; C1725; C1751; C1757; C1769; C1894; J1200; J1644; J2250; J2270; J2930; J2997; J3010; J3370; J7050; Q9967

== ENCOUNTER 2017-03-23 12:50 | Outpatient (CLI) | payer MEDICARE ==
--- NOTE | 2017-03-26 09:52 | Vascular Lab Report ---
UPPER EXTREMITY ARTERIAL DUPLEX: REASON FOR EXAM: Bilateral upper extremity claudication with left AV access placed in 2014. COMMENTS ON THE RIGHT: Triphasic waveforms are seen proximally. Triphasic waveforms are seen distally. No significant velocity gradients are identified. No significant plaque is identified. Findings are consistent with normal perfusion. COMMENTS ON THE LEFT: Monophasic waveforms are seen proximally. Monophasic proximal waveforms are expected with a patent left upper extremities AV fistula. Monophasic waveforms are seen distally. Monophasic ulnar velocities increase from 38 cm/s to 80 cm/s with compression of the AV access. Monophasic radial velocities increase from 54 cm/s to 156 cm/s with compression of the AV access. No significant plaque is identified. Findings are consistent with abnormal perfusion. IMPRESSION: RIGHT: Essentially normal arterial flow. LEFT:Monophasic left upper extremity waveforms. Monophasic proximal waveforms are normal with a patent left upper extremity AV fistula. However, there are also distal left upper extremity monophasic waveforms that significantly increase in velocity with compression of the AV access. Recommend correlation to physical examination to determine if this represents a clinically significant arterial steal from the AVF.
== END 2017-03-23 12:51 | disposition home or self-care (01) ==
LOC: VAS 12:50
PROVIDERS: ATTEND Internal Medicine
DX: I73.9 Peripheral vascular disease, unspecified (principal)
CPT/HCPCS: 93930

== ENCOUNTER 2017-06-23 16:13 | Inpatient (IN) | payer MEDICARE ==
[2017-06-23 19:07] LABS: Hematocrit 28.9 % (30.3-42.9); Hemoglobin 9.7 gm/dl (10.1-14.3); Mean Corpuscular HGB Conc 34 % (30-34); Mean Corpuscular Hemoglobin 32 pg (28-32); Mean Corpuscular Volume 95 fl (79-97); Platelet Count 229 K/mm3 (140-440); Red Blood Count 3.05 M/mm3 (3.65-5.03)
[2017-06-23 19:13] LABS: INR 0.85 (0.87-1.13)
[2017-06-23 19:23] LABS: Red Cell Distribution Width 24.1 % (13.2-15.2)
[2017-06-23 19:35] LABS: Alanine Aminotransferase 16 units/L (7-56); Albumin 3.3 g/dL (3.9-5); BUN/Creatinine Ratio 2; Blood Urea Nitrogen 13 mg/dL (7-17); Calcium 8.7 mg/dL (8.4-10.2); Hemolysis Index 20
[2017-06-23] MEDS ORDERED: VANCOMYCIN VIAL IV ONE (19:35)
[2017-06-23] MEDS ORDERED: NACL 0.9% 1000 ML IV ONE (19:35)
[2017-06-23] MEDS ORDERED: VANCOMYCIN PHARMACY TO DOSE IV SCH (20:00)
[2017-06-23] MEDS ORDERED: VANCOMYCIN/0.45 NS 1 GM/250 ML 1 GM/250 ML BAG IV ONE (21:00)
--- NOTE | 2017-06-23 22:06 | Emergency Department Report ---
ED General Adult HPI - General Chief complaint: Dizziness Stated complaint: GENERAL WEAKNESS Time Seen by Provider: 06/23/17 18:20 Source: patient, EMS Mode of arrival: Stretcher Limitations: No Limitations - History of Present Illness Initial comments: Ptis a 71 yo renal failure pt on dialysis who presents after being on dialysis today at [facility]. pt noted that she was 1 hour into her treatment that is usually 3 hours when she stated that she is feeling weak and tired. Pt denied any syncope, chest pain, sob, vomiting or diarrhea. - Related Data Home Medications Medication Instructions Recorded Confirmed Last Taken ALBUTEROL Inhaler [ProAir HFA 2 puff IH QID PRN 06/01/17 06/23/17 Unknown Inhaler] Acetaminophen [Acetaminophen TAB] 650 mg PO Q4HR PRN 06/01/17 06/23/17 Unknown Aspirin [Adult Low Dose Aspirin EC] 81 mg PO QDAY 06/01/17 06/23/17 Unknown Calcium Acetate [Phoslo] 1,334 mg PO TIDWM 06/01/17 06/23/17 Unknown Mirtazapine [Remeron] 15 mg PO HS 06/01/17 06/23/17 Unknown Ondansetron [Zofran TAB] 4 mg PO Q8HR PRN 06/01/17 06/23/17 Unknown Travoprost [Travatan Z 0.004%] 1 drop OU QPM 06/01/17 06/23/17 Unknown Previous Rx's Medication Instructions Recorded Last Taken Type ALBUTEROL NEB's [Proventil 0.083% 2.5 mg IH Q3HRT PRN nebu 06/09/17 Unknown Rx NEBS] Famotidine [Pepcid] 20 mg PO QDAY #30 tablet 06/09/17 Unknown Rx Fludrocortisone [Florinef] 0.1 mg PO BID #60 tablet 06/09/17 Unknown Rx Insulin Regular, Human [HumuLIN R] 0 units SUB-Q Q6HR units 06/09/17 Unknown Rx Midodrine [Proamatine] 10 mg PO Q8HR tablet 06/09/17 Unknown Rx Sevelamer Carbonate [Renvela] 800 mg PO AC tablet 06/09/17 Unknown Rx Simple Syrup 30 ml FEEDTUBE PRN PRN oral.liqd 06/09/17 Unknown Rx Simvastatin [Zocor] 5 mg PO HS #30 tablet 06/09/17 Unknown Rx Sodium Bicarbonate 325 mg FEEDTUBE PRN PRN tablet 06/09/17 Unknown Rx Allergies Allergy/AdvReac Type Severity Reaction Status Date / Time Barbiturates Allergy Hives Verified 11/20/16 20:26 Iodine and Iodide Containing Allergy Hives Verified 11/20/16 20:26 Produc cosmo Allergy Swelling Verified 11/20/16 20:26 penicillin Allergy Swelling Verified 11/20/16 20:26 HORSES Allergy Swelling Uncoded 11/20/16 20:26 CATS AdvReac Unknown Uncoded 11/20/16 20:26 ED Review of Systems ROS: Stated complaint: GENERAL WEAKNESS Other details as noted in HPI ED Past Medical Hx - Past Medical History Hx Hypertension: Yes Hx Heart Attack/AMI: No Hx Congestive Heart Failure: Yes Hx Deep Vein Thrombosis: No Hx Renal Disease: Yes (M, W, F) Hx Kidney Stones: Yes Hx Asthma: Yes Hx COPD: Yes Hx Dementia: Yes Hx HIV: No Additional medical history: ileostomy, Crohn's versus ulcerative colitis, hypotension - Surgical History Hx Pacemaker: No Hx Internal Defibrillator: No Additional Surgical History: ileostomy. fistula to LUE - Social History Smoking Status: Former Smoker Substance Use Type: None - Medications Home Medications: Home Medications Medication Instructions Recorded Confirmed Last Taken Type ALBUTEROL Inhaler [ProAir HFA 2 puff IH QID PRN 06/01/17 06/23/17 Unknown History Inhaler] Acetaminophen [Acetaminophen TAB] 650 mg PO Q4HR PRN 06/01/17 06/23/17 Unknown History Aspirin [Adult Low Dose Aspirin EC] 81 mg PO QDAY 06/01/17 06/23/17 Unknown History Calcium Acetate [Phoslo] 1,334 mg PO TIDWM 06/01/17 06/23/17 Unknown History Mirtazapine [Remeron] 15 mg PO HS 06/01/17 06/23/17 Unknown History Ondansetron [Zofran TAB] 4 mg PO Q8HR PRN 06/01/17 06/23/17 Unknown History Travoprost [Travatan Z 0.004%] 1 drop OU QPM 06/01/17 06/23/17 Unknown History ALBUTEROL NEB's [Proventil 0.083% 2.5 mg IH Q3HRT PRN nebu 06/09/17 06/23/17 Unknown Rx NEBS] Famotidine [Pepcid] 20 mg PO QDAY #30 tablet 06/09/17 06/23/17 Unknown Rx Fludrocortisone [Florinef] 0.1 mg PO BID #60 tablet 06/09/17 06/23/17 Unknown Rx Insulin Regular, Human [HumuLIN R] 0 units SUB-Q Q6HR units 06/09/17 06/23/17 Unknown Rx Midodrine [Proamatine] 10 mg PO Q8HR tablet 06/09/17 06/23/17 Unknown Rx Sevelamer Carbonate [Renvela] 800 mg PO AC tablet 06/09/17 06/23/17 Unknown Rx Simple Syrup 30 ml FEEDTUBE PRN PRN oral.liqd 06/09/17 06/23/17 Unknown Rx Simvastatin [Zocor] 5 mg PO HS #30 tablet 06/09/17 06/23/17 Unknown Rx Sodium Bicarbonate 325 mg FEEDTUBE PRN PRN tablet 06/09/17 06/23/17 Unknown Rx ED Physical Exam - General Limitations: No Limitations ED Course Vital Signs 06/23/17 06/23/17 17:04 17:08 Temperature 98.6 F Pulse Rate 69 70 Respiratory 18 18 Rate Blood Pressure 93/54 O2 Sat by Pulse 96 99 Oximetry ED Medical Decision Making - Lab Data Result diagrams: 06/23/17 18:31 06/23/17 18:31 Critical care attestation.: If time is entered above; I have spent that time in minutes in the direct care of this critically ill patient, excluding procedure time. ED Disposition Clinical Impression: Lactic acid increased, Sepsis Is pt being admited?: Yes Does the pt Need Aspirin: No Condition: Stable Time of Disposition: 20:00
[2017-06-23] MEDS: MORPHINE IV PRN (22:50)
[2017-06-23] MEDS ORDERED: MORPHINE ONE (22:54)
[2017-06-23 23:30] LABS: Bacteria,Urine 4+ /HPF (Negative); Bilirubin,Urine SM (Negative); Blood,Urine SM (Negative); Color,Urine Yellow (Yellow); Mucus,Urine 3+ /HPF
[2017-06-23 23:31] LABS: RBC,Urine > 182.0 /HPF (0.0-6.0)
[2017-06-23 23:33] LABS: Anisocytosis 2+; Band Neutrophils # (Manual) 0.3 K/mm3; Platelet Estimate Consistent w Auto; Total Cells Counted 100
[2017-06-23 23:43] LABS: Ictotest,Urine Negative (Negative)
[2017-06-24] MEDS: MORPHINE IV PRN (02:45)
--- NOTE | 2017-06-24 06:32 | Event Note ---
Date: 06/23/17 06/23/17 See H/p in reports Hypotension ??Sepsis
[2017-06-24] MEDS ORDERED: PERCOCET 5/325 PO PRN (06:40)
[2017-06-24] MEDS ORDERED: ZOFRAN IV PRN (06:40)
[2017-06-24] MEDS ORDERED: SODIUM CHLORIDE FLUSH SYRINGE 10 ML IV PRN (06:40)
[2017-06-24] MEDS ORDERED: PROAIR IH PRN (06:41)
[2017-06-24] MEDS ORDERED: TYLENOL PO PRN (06:41)
[2017-06-24] MEDS ORDERED: SIMPLE SYRUP FEEDTUBE PRN (06:41)
[2017-06-24] MEDS ORDERED: SODIUM BICARBONATE FEEDTUBE PRN (06:41)
[2017-06-24] MEDS ORDERED: ZOFRAN PO PRN (06:41)
[2017-06-24 07:48] LABS: Calcium 7.6 mg/dL (8.4-10.2)
--- NOTE | 2017-06-24 07:55 | History and Physical Report ---
History of Present Illness: Pt is a 71 yo renal failure pt on dialysis who presents after being on dialysis today at [facility]. pt noted that she was 1 hour into her treatment that is usually 3 hours when she stated that she was feeling weak and tired. Pt denied any syncope, chest pain, sob, vomiting or diarrhea. No fever or chills.History of noncompliance present. Past Medical History Hx Hypertension: Yes Hx Congestive Heart Failure: Yes Hx Renal Disease: Yes (M, W, F) Hx Kidney Stones: Yes Hx Asthma: Yes Hx COPD: Yes Hx Dementia: Yes Additional medical history: ileostomy, Crohn's versus ulcerative colitis, hypotension Surgical History Hx Pacemaker: No Hx Internal Defibrillator: No Additional Surgical History: ileostomy. fistula to LUE Social History Smoking Status: Former Smoker Substance Use Type: None Family History Hypertension. REVIEW OF SYSTEMS: Significant for feeling very weak and having a very low blood pressure in the Emergency Room. Otherwise, review of systems is essentially negative. - Related Data Home Medications Medication Instructions Recorded Confirmed Last Taken ALBUTEROL Inhaler [ProAir HFA 2 puff IH QID PRN 06/01/17 06/23/17 Unknown Inhaler] Acetaminophen [Acetaminophen TAB] 650 mg PO Q4HR PRN 06/01/17 06/23/17 Unknown Aspirin [Adult Low Dose Aspirin EC] 81 mg PO QDAY 06/01/17 06/23/17 Unknown Calcium Acetate [Phoslo] 1,334 mg PO TIDWM 06/01/17 06/23/17 Unknown Mirtazapine [Remeron] 15 mg PO HS 06/01/17 06/23/17 Unknown Ondansetron [Zofran TAB] 4 mg PO Q8HR PRN 06/01/17 06/23/17 Unknown Travoprost [Travatan Z 0.004%] 1 drop OU QPM 06/01/17 06/23/17 Unknown Previous Rx's Medication Instructions Recorded Last Taken Type ALBUTEROL NEB's [Proventil 0.083% 2.5 mg IH Q3HRT PRN nebu 06/09/17 Unknown Rx NEBS] Famotidine [Pepcid] 20 mg PO QDAY #30 tablet 06/09/17 Unknown Rx Fludrocortisone [Florinef] 0.1 mg PO BID #60 tablet 06/09/17 Unknown Rx Insulin Regular, Human [HumuLIN R] 0 units SUB-Q Q6HR units 06/09/17 Unknown Rx Midodrine [Proamatine] 10 mg PO Q8HR tablet 06/09/17 Unknown Rx Sevelamer Carbonate [Renvela] 800 mg PO AC tablet 06/09/17 Unknown Rx Simple Syrup 30 ml FEEDTUBE PRN PRN oral.liqd 06/09/17 Unknown Rx Simvastatin [Zocor] 5 mg PO HS #30 tablet 06/09/17 Unknown Rx Sodium Bicarbonate 325 mg FEEDTUBE PRN PRN tablet 06/09/17 Unknown Rx Allergies Allergy/AdvReac Type Severity Reaction Status Date / Time Barbiturates Allergy Hives Verified 11/20/16 20:26 Iodine and Iodide Containing Allergy Hives Verified 11/20/16 20:26 Produc cosmo Allergy Swelling Verified 11/20/16 20:26 penicillin Allergy Swelling Verified 11/20/16 20:26 HORSES Allergy Swelling Uncoded 11/20/16 20:26 CATS AdvReac Unknown Uncoded 11/20/16 20:26 . PHYSICAL EXAMINATION: GENERAL: Elderly female, cooperative during examination. VITAL SIGNS: Initial blood pressure was like 60/40, came up to near normal. The first blood pressure was 60/40 and later on it was 73/43, came up to p.o. every 106/73. Pulse is 84, respirations 11 and sats are 100%. HEENT: Unremarkable. Pupils equal and reactive. NECK: Supple, no lymphadenopathy, no thyromegaly. LUNGS: Clear to auscultation and percussion. Good air entry. CARDIOVASCULAR: S1, S2 heard. No gallop, no murmur, no rub. Apical impulse in left fifth intercostal space and midclavicular line. ABDOMEN: Soft and benign. No hepatosplenomegaly. No guarding, no rigidity. Hernial orifices are normal. EXTREMITIES: Good pedal pulses. No pedal edema. There is a graft in left upper extremity. CENTRAL NERVOUS SYSTEM: Alert and oriented x 4, nonfocal exam. LABORATORY DATA: Significant for H and H of 9.7 and 28.9. Lactic acid is 2.6, BUN and creatinine 13 and 5.3. Potassium is 3.2. Sodium is 134. Urine wbc's 24. ASSESSMENT AND PLAN: 1. Hypotension, possibly secondary to volume depletion. The patient is chronically hypotensive too. The patient is on fludrocortisone and Midodrine 10 mg po tid. Continue the same. IV fluids for now, but gently so that patient does not into pulmonary vascular congestion. 2. End-stage renal disease. Continue dialysis. 3. Insulin-dependent diabetes. Continue insulin coverage.Check A1c. 4. Hyperlipidemia. Continue simvastatin. 5. Anemia, chronic. Continue Epogen and transfuse as necessary. Does not need transfusion at this point. 6. Gastroesophageal reflux disease. Continue famotidine. 7. Sepsis, possible. Lactic acid is a bit high. Urine has some white cells, about 24. We will treat with IV Rocephin for the time being.Check Blood cultures. 8. Deep venous thrombosis prophylaxis, heparin 5000 q.12h. Renal consult requested JOB# [id number] BETTY/DEVYN RICHTER
--- NOTE | 2017-06-24 09:33 | Consultation ---
History of Present Illness - History of Present Illness Thank you for the consultation patient was evaluated today. Source of information; patient herself current chart and old records She is a very poor historian History of presenting illness; Patient is a 41-year-old -Al[place] female who has been admitted here with hypotension, and has not been able to lyse the outpatient setting. Patient is an extremely poor historian and is currently in maintenance and with dialysis on Wednesday. Patient has been through cardiac workup and has also been on midodrine as well as Florinef for her blood pressure. She is also hypokalemic has no complaints of any chest pain pressure or shortness of breath She is otherwise feeling well Past medical history significant for End-stage renal disease Anemia and a surgical disease Chronic hypotension Secondary hyperparathyroidism chronic hypokalemia poor overall health Dementia Behavioral problems Current allergies: Multiple reviewed Social history: Reviewed from the chart Family history: Reviewed Medication: Reviewed Review of systems generalized weakness fatigue dizziness and hypotension denies any complaints of nausea vomiting does have loose stools Complete review of the systems were negative Please note patient is an extremely poor historian Labs and x-rays: Were reviewed from the current chart Physical examination General: No acute distress HEENT: Oral mucosa moist no pharyngeal erythema no pallor or icterus no uremic order Neck: Supple no evidence of any thyromegaly trachea midline no JVD Chest: Clear to auscultation no crackles are also wheezes anteriorly Heart: Regular rate and rhythm S1-S2 heard no S3-S4 Abdomen: Soft nontender no renal bruit no CVA tenderness no suprapubic fullness no organomegaly Extremity: Minimal edema dry skin no peripheral cyanosis pulses palpable Neurological: Alert awake follows command grossly nonfocal examination Back: Nontender thoracolumbar spine Musculoskeletal: No joint effusion noted Skin: No petechial rash/noted Assessment and plan nd-stage renal disease: Patient is currently on maintenance hemodialysis: Tolerating dialysis treatment very poorly chronic hypotension Need to monitor intake and output closely patient does have output from ostomy as well May need IV fluid correction of electrolyte supportive care Chronic hypotension/noncompliant patient/needs IV fluid and supportive care Dementia with behavioral problems which has been an issue chronically she is very rude Monitor dialysis related labs get urine c/s Overall prognosis is very poor mortality risk is high and complications during dialysis may be possible due to hypotension patient may be prone to sudden cardiac given during dialysis have explained her at length She has had several admissions like this in the past There is no acute emergent indication for renal placement therapy today Will order labs and follow-up We'll continue to follow and make recommendations from renal standpoint. If you have any questions please feel free to contact me at [phone] Thank you for the consultation. Medications and Allergies Allergies Allergy/AdvReac Type Severity Reaction Status Date / Time Barbiturates Allergy Hives Verified 11/20/16 20:26 Iodine and Iodide Containing Allergy Hives Verified 11/20/16 20:26 Produc cosmo Allergy Swelling Verified 11/20/16 20:26 penicillin Allergy Swelling Verified 11/20/16 20:26 HORSES Allergy Swelling Uncoded 11/20/16 20:26 CATS AdvReac Unknown Uncoded 11/20/16 20:26 Home Medications Medication Instructions Recorded Confirmed Last Taken Type ALBUTEROL Inhaler [ProAir HFA 2 puff IH QID PRN 06/01/17 06/23/17 Unknown History Inhaler] Acetaminophen [Acetaminophen TAB] 650 mg PO Q4HR PRN 06/01/17 06/23/17 Unknown History Aspirin [Adult Low Dose Aspirin EC] 81 mg PO QDAY 06/01/17 06/23/17 Unknown History Calcium Acetate [Phoslo] 1,334 mg PO TIDWM 06/01/17 06/23/17 Unknown History Mirtazapine [Remeron] 15 mg PO HS 06/01/17 06/23/17 Unknown History Ondansetron [Zofran TAB] 4 mg PO Q8HR PRN 06/01/17 06/23/17 Unknown History Travoprost [Travatan Z 0.004%] 1 drop OU QPM 06/01/17 06/23/17 Unknown History ALBUTEROL NEB's [Proventil 0.083% 2.5 mg IH Q3HRT PRN nebu 06/09/17 06/23/17 Unknown Rx NEBS] Famotidine [Pepcid] 20 mg PO QDAY #30 tablet 06/09/17 06/23/17 Unknown Rx Fludrocortisone [Florinef] 0.1 mg PO BID #60 tablet 06/09/17 06/23/17 Unknown Rx Insulin Regular, Human [HumuLIN R] 0 units SUB-Q Q6HR units 06/09/17 06/23/17 Unknown Rx Midodrine [Proamatine] 10 mg PO Q8HR tablet 06/09/17 06/23/17 Unknown Rx Sevelamer Carbonate [Renvela] 800 mg PO AC tablet 06/09/17 06/23/17 Unknown Rx Simple Syrup 30 ml FEEDTUBE PRN PRN oral.liqd 06/09/17 06/23/17 Unknown Rx Simvastatin [Zocor] 5 mg PO HS #30 tablet 06/09/17 06/23/17 Unknown Rx Sodium Bicarbonate 325 mg FEEDTUBE PRN PRN tablet 06/09/17 06/23/17 Unknown Rx Active Meds: Active Medications Acetaminophen (Tylenol) 650 mg PO Q4H PRN PRN Reason: Pain MILD(1-3)/Fever >100.5/MAYA Albuterol (Proair) 2 puff IH QID PRN PRN Reason: Shortness Of Breath Albuterol (Proventil) 2.5 mg IH Q3HRT PRN PRN Reason: Shortness Of Breath Aspirin (Halfprin Ec) 81 mg PO QDAY IRIS Calcium Acetate (Phoslo) 1,334 mg PO TIDWM IRIS Famotidine (Pepcid) 20 mg PO QDAY IRIS Fludrocortisone Acetate (Florinef) 0.1 mg PO BID IRIS Ceftriaxone Sodium 1 gm/ (Sodium Chloride) 20 mls @ 20 mls/10 min IV Q24HR IRIS ; Protocol Sodium Chloride (Nacl 0.9% 1000 Ml) 1,000 mls @ 30 mls/hr IV DIRECT IIRS Midodrine (Proamatine) 10 mg PO Q8HR IRIS Mirtazapine (Remeron) 15 mg PO HS IRIS Miscellaneous Medication (Simvastatin [Zocor]) 5 mg PO HS [facility] Miscellaneous Medication (Travoprost [Travatan Z 0.004%]) 1 drop OU QPM [facility] Morphine Sulfate (Morphine) 2 mg IV Q3H PRN PRN Reason: Pain, Moderate (4-6) Last Admin: 06/24/17 02:45 Dose: 2 mg Ondansetron HCl (Zofran) 4 mg IV Q8H PRN PRN Reason: Nausea And Vomiting Ondansetron HCl (Zofran) 4 mg PO Q8HR PRN PRN Reason: Nausea And Vomiting Oxycodone/Acetaminophen (Percocet 5/325) 1 tab PO Q6H PRN PRN Reason: Pain, Moderate (4-6) Sevelamer Carbonate (Renvela) 800 mg PO AC IRIS Simple Syrup (Simple Syrup) 30 ml FEEDTUBE PRN PRN PRN Reason: Hypoglycemia Sodium Bicarbonate (Sodium Bicarbonate) 325 mg FEEDTUBE PRN PRN PRN Reason: For Clogged Feeding Tube Sodium Chloride (Sodium Chloride Flush Syringe 10 Ml) 10 ml IV BID IRIS Sodium Chloride (Sodium Chloride Flush Syringe 10 Ml) 10 ml IV PRN PRN PRN Reason: LINE FLUSH Vancomycin HCl (Vancomycin Pharmacy To Dose) 1 each IV PKCONSULT IRIS Exam - Vital Signs Vital signs: Vital Signs Temp Pulse Resp BP Pulse Ox 98.6 F 69 18 93/54 96 06/23/17 17:04 06/23/17 17:04 06/23/17 17:04 06/23/17 17:04 06/23/17 17:04 Results - Lab Results 06/23/17 18:31 06/24/17 07:00 Most recent lab results Calcium 7.6 mg/dL (8.4-10.2) L 06/24/17 07:00 Magnesium 1.70 mg/dL (1.7-2.3) 06/23/17 18:31
[2017-06-24] MEDS ORDERED: PROVENTIL IH PRN (11:00)
[2017-06-24] MEDS ORDERED: NACL 0.9% 1000 ML 1,000 ML IV SCH (11:00)
[2017-06-24] MEDS: TYLENOL PO PRN ×2 (11:45→16:13)
[2017-06-24] MEDS: SODIUM CHLORIDE FLUSH SYRINGE 10 ML IV SCH ×2 (11:51→22:07)
[2017-06-24] MEDS ORDERED: K-DUR PO ONE (12:00)
--- NOTE | 2017-06-24 13:52 | Progress Note ---
Assessment and Plan Hypotension, possibly secondary to volume depletion - Start on low volume normal saline at 30 mL per hour - Continue home dose of midodrine and 10 mg every 8 hours End-stage renal disease -Nephrology consulted for dialysis, next Dialysis will be tomorrow Insulin-dependent diabetes mellitus type 2 - Continue consistent carbohydrate diet and insulin coverage Hyperlipidemia, continue simvastatin Anemia of chronic disease, likely from ESRD - Continue Epogen with dialysis GERD, continue PPI Elevated lactic acid, will trend lactate - Could be from hypotension - Does not appear to be septic, no source of infection at this point - Continue to monitor clinically, follow blood culture - Continue Rocephin for now until culture negative Dementia, supportive care DVT prophylaxis with heparin Brief history: Is a 71-year-old female with history of an sister of disease on dialysis, chronic hypotension on midodrine presented to the ER from the [facility] dialysis center after being dialyzed for 1 hour as patient noted to be hypotensive and she was complaining of generalized weakness. Radiological test: none Hospitalist Physical exam: GENERAL: elderly female lying on bed appeared to be in no discomfort. HEENT: Normocephalic. Atraumatic. No conjunctival congestion or icterus. Patient has moist mucous membranes. NECK: Supple. Trachea midline. CHEST/LUNGS: Clear to auscultated bilaterally, breathing nonlabored. No wheezes crackles or rhonchi. HEART/CARDIOVASCULAR: Regular in rate and rhythm. S1 and S2 positive. ABDOMEN: Abdomen is soft, nontender. Patient has normal bowel sounds. SKIN: There is no rash. Warm and dry. NEURO: No focal motor deficit. Follows command. MUSCULOSKELETAL: No joint effusion or tenderness. EXTRIMITY: No edema, no cyanosis or clubbing. PSYCH: Cooperative. Subjective Date of service: 06/24/17 Interval history: Patient seen and examined. Medical records and medication list reviewed. No acute event overnight noted by the RN. Patient denies any chest pain or difficulty breathing. Patient is tolerating diet. BP at mid 80s Discussed plan of care at bedside with patient. Objective - Constitutional Vitals: Vital Signs - 12hr 06/24/17 06/24/17 06/24/17 02:01 02:11 02:21 Temperature Pulse Rate 87 84 82 Respiratory 14 14 15 Rate Blood Pressure 124/79 124/79 128/69 Blood Pressure [Right] O2 Sat by Pulse 99 99 99 Oximetry 06/24/17 06/24/17 06/24/17 02:31 02:41 02:45 Temperature Pulse Rate 84 94 H Respiratory 16 14 20 Rate Blood Pressure 113/61 113/61 Blood Pressure [Right] O2 Sat by Pulse 99 99 Oximetry 06/24/17 06/24/17 06/24/17 02:51 03:09 03:10 Temperature 97.8 F 98.4 F Pulse Rate 84 97 H Respiratory 14 20 18 Rate Blood Pressure 113/68 89/54 Blood Pressure 89/54 [Right] O2 Sat by Pulse 100 98 Oximetry 06/24/17 06/24/17 06/24/17 03:15 07:19 08:30 Temperature 98.1 F Pulse Rate 88 Respiratory 18 18 16 Rate Blood Pressure 80/47 Blood Pressure [Right] O2 Sat by Pulse 96 Oximetry 06/24/17 11:35 Temperature Pulse Rate 88 Respiratory Rate Blood Pressure Blood Pressure 87/57 [Right] O2 Sat by Pulse Oximetry - Labs CBC & Chem 7: 06/23/17 18:31 06/24/17 07:00 Labs: Abnormal lab results 06/23/17 06/23/17 06/23/17 Range/Units 18:31 18:31 18:31 RBC 3.05 L (3.65-5.03) M/mm3 Hgb 9.7 L (10.1-14.3) gm/dl Hct 28.9 L (30.3-42.9) % RDW 24.1 H (13.2-15.2) % Seg Neuts % (Manual) 78.0 H (40.0-70.0) % Lymphocytes % (Manual) 7.0 L (13.4-35.0) % Basophils % (Manual) 2.0 H (0.0-1.8) % Lymphocytes # (Manual) 0.5 L (1.2-5.4) K/mm3 PT 12.0 L (12.2-14.9) Sec. INR 0.85 L (0.87-1.13) Sodium 134 L (137-145) mmol/L Potassium 3.2 L (3.6-5.0) mmol/L Chloride 89.0 L (98-107) mmol/L Creatinine 5.3 H (0.7-1.2) mg/dL Glucose 107 H (65-100) mg/dL Lactic Acid (0.7-2.0) mmol/L Calcium (8.4-10.2) mg/dL Total Protein 6.0 L (6.3-8.2) g/dL Albumin 3.3 L (3.9-5) g/dL Urine WBC (Auto) (0.0-6.0) /HPF 06/23/17 06/23/17 06/23/17 Range/Units 18:31 19:54 20:32 RBC (3.65-5.03) M/mm3 Hgb (10.1-14.3) gm/dl Hct (30.3-42.9) % RDW (13.2-15.2) % Seg Neuts % (Manual) (40.0-70.0) % Lymphocytes % (Manual) (13.4-35.0) % Basophils % (Manual) (0.0-1.8) % Lymphocytes # (Manual) (1.2-5.4) K/mm3 PT (12.2-14.9) Sec. INR (0.87-1.13) Sodium (137-145) mmol/L Potassium (3.6-5.0) mmol/L Chloride (98-107) mmol/L Creatinine (0.7-1.2) mg/dL Glucose (65-100) mg/dL Lactic Acid 3.90 H* 2.60 H* 4.10 H* (0.7-2.0) mmol/L Calcium (8.4-10.2) mg/dL Total Protein (6.3-8.2) g/dL Albumin (3.9-5) g/dL Urine WBC (Auto) (0.0-6.0) /HPF 06/23/17 06/24/17 Range/Units 23:07 07:00 RBC (3.65-5.03) M/mm3 Hgb (10.1-14.3) gm/dl Hct (30.3-42.9) % RDW (13.2-15.2) % Seg Neuts % (Manual) (40.0-70.0) % Lymphocytes % (Manual) (13.4-35.0) % Basophils % (Manual) (0.0-1.8) % Lymphocytes # (Manual) (1.2-5.4) K/mm3 PT (12.2-14.9) Sec. INR (0.87-1.13) Sodium (137-145) mmol/L Potassium 3.2 L (3.6-5.0) mmol/L Chloride (98-107) mmol/L Creatinine 5.9 H (0.7-1.2) mg/dL Glucose (65-100) mg/dL Lactic Acid (0.7-2.0) mmol/L Calcium 7.6 L (8.4-10.2) mg/dL Total Protein (6.3-8.2) g/dL Albumin (3.9-5) g/dL Urine WBC (Auto) 24.0 H (0.0-6.0) /HPF
[2017-06-24] MEDS: PROAMATINE PO SCH ×2 (14:26→22:06)
[2017-06-24] MEDS: HALFPRIN EC PO SCH (14:26)
[2017-06-24] MEDS: PEPCID PO SCH (14:26)
[2017-06-24] MEDS: RENVELA PO SCH ×2 (14:27→17:13)
[2017-06-24] MEDS: PHOSLO PO SCH ×2 (14:28→17:13)
[2017-06-24] MEDS ORDERED: K-DUR PO NR (14:30)
[2017-06-24] MEDS: cefTRIAXone 1 GM in NACL 0.9% 20 ML IV SCH (14:47)
[2017-06-24] MEDS: FLORINEF PO SCH ×2 (14:48→22:06)
[2017-06-24] MEDS: LATANOPROST 0.005% OU SCH (17:14)
[2017-06-24] MEDS ORDERED: NON-FORMULARY (Travoprost [Travatan Z 0.004%] 1 DROP) OU SCH (18:00)
[2017-06-24] MEDS ORDERED: NORCO 5/325 PO PRN (18:14)
[2017-06-24] MEDS ORDERED: SIMVASTATIN 5 MG PO SCH (22:00)
[2017-06-24] MEDS: REMERON PO SCH (22:05)
[2017-06-24] MEDS: PRAVACHOL PO SCH (23:06)
[2017-06-25] MEDS: PROAMATINE PO SCH ×3 (06:24→23:15)
[2017-06-25 07:10] LABS: Albumin 2.7 g/dL (3.9-5)
[2017-06-25] MEDS: RENVELA PO SCH ×3 (07:53→16:54)
[2017-06-25] MEDS: PHOSLO PO SCH ×3 (08:54→18:55)
[2017-06-25] MEDS: HALFPRIN EC PO SCH (10:00)
[2017-06-25] MEDS: SODIUM CHLORIDE FLUSH SYRINGE 10 ML IV SCH ×2 (10:00→22:25)
[2017-06-25] MEDS: cefTRIAXone 1 GM in NACL 0.9% 20 ML IV SCH (10:01)
[2017-06-25] MEDS: PEPCID PO SCH (10:59)
[2017-06-25] MEDS ORDERED: PROCRIT IV PRN (11:41)
[2017-06-25] MEDS ORDERED: NACL 0.9% 100 ML IV PRN (11:41)
--- NOTE | 2017-06-25 11:51 | Progress Note ---
Assessment and Plan Impression: * ESRD * UTI with sepsis * Dementia * HYpotension--chronic * IIDM * Anemia in ESRD Plan: * HD q MWF as hemodynamics allow * gentle ivfs * iv abx for urosepsis * strict i/os * renal diet * needs placement * follow lytes/cbc prn * Subjective Date of service: 06/25/17 Principal diagnosis: esrd Interval history: resting in bed Objective - Exam Narrative Exam: GENERAL: elderly female lying on bed appeared to be in no discomfort. HEENT: Normocephalic. Atraumatic. No conjunctival congestion or icterus. Patient has moist mucous membranes. NECK: Supple. Trachea midline. CHEST/LUNGS: Clear to auscultated bilaterally, breathing nonlabored. No wheezes crackles or rhonchi. HEART/CARDIOVASCULAR: Regular in rate and rhythm. S1 and S2 positive. ABDOMEN: Abdomen is soft, nontender. Patient has normal bowel sounds. SKIN: There is no rash. Warm and dry. NEURO: No focal motor deficit. Follows command. MUSCULOSKELETAL: No joint effusion or tenderness. EXTRIMITY: No edema, no cyanosis or clubbing. PSYCH: Cooperative - Vital Signs Vital signs: Vital Signs - 12hr 06/25/17 06/25/17 02:37 04:07 Temperature 97.6 F Pulse Rate 74 67 Respiratory 18 Rate Blood Pressure 89/58 [Right] O2 Sat by Pulse 100 100 Oximetry - Lab 06/23/17 18:31 06/25/17 06:14 Most recent lab results Calcium 8.0 mg/dL (8.4-10.2) L 06/25/17 06:14 Magnesium 1.70 mg/dL (1.7-2.3) 06/23/17 18:31
--- NOTE | 2017-06-25 13:57 | Discharge Summary ---
Providers - Providers Date of Admission: 06/23/17 22:14 Date of discharge: 06/26/17 Attending physician: ANASTASIA BORRERO 06/24/17 06:40 Consult to Physician [CONS] Routine Comment: called office/s[facility]by Consulting Provider: LUKE YBARRA Physician Instructions: Reason For Exam: ESRd 06/24/17 13:55 Physical Therapy Evaluation and Treat [CONS] Routine Comment: Reason For Exam: physical debility with left sided weakness Primary care physician: MARKETING PROGRAM COORDINATOR Hospitalization Condition: Stable Hospital course: Brief history: This Is a 71-year-old female with history of an sister of disease on dialysis, chronic hypotension on midodrine presented to the ER from the [facility] dialysis [facility] after being dialyzed for 1 hour as patient noted to be hypotensive and she was complaining of generalized weakness. Patient was admitted to the hospital for further evaluation and management. Reviewing patient history revealed that patient has history of chronic hypertension and she takes midodrine as home meds. She was placed on low volume IV fluid weight and started back on midodrine. She denied any chest pain or short of breath, did not also have any sign of volume overload. Patient noted to have elevated lactic acid and very mild UTI. She was treated empirically with antibiotics, blood culture was negative. Nephrology was consulted for dialysis and patient tolerated the dialysis without any complication. Patient was discharged back to her snf in stable condition. She'll continue her dialysis with [facility] on Wednesday and Wednesday schedule. Discharge diagnosis and management: Hypotension, possibly secondary to volume depletion - Started on low volume normal saline at 30 mL per hour - resumed home dose of midodrine and 10 mg every 8 hours - Patient has history of chronic hypertension - Patient remained asymptomatic, denied any chest pain or difficulty breathing End-stage renal disease -Nephrology consulted for dialysis, tolerated dialysis well without any side effects Insulin-dependent diabetes mellitus type 2 -Placed on consistent carbohydrate diet and insulin coverage Hyperlipidemia, continue simvastatin Anemia of chronic disease, likely from ESRD -Patient to get Epogen with dialysis GERD, continue PPI Possible Sepsis, likely from UTI - Patient had elevated lactic acid, tachycardia on admission (finding also could be related to dehydration and her relative tachycardia from hypotension) - Treated with antibiotic, lactic acid trended down Elevated lactic acid, - Could be from hypotension with dehydration and possible sepsis considering the patient presented with very mild UTI, - Monitored clinically, negative blood culture - Given IV antibiotics empirically Dementia per history, supportive care. UTI, treated with abx DVT prophylaxis with heparin Radiological test: none Hospitalist Physical exam: GENERAL: elderly female lying on bed appeared to be in no discomfort. HEENT: Normocephalic. Atraumatic. No conjunctival congestion or icterus. Patient has moist mucous membranes. NECK: Supple. Trachea midline. CHEST/LUNGS: Clear to auscultated bilaterally, breathing nonlabored. No wheezes crackles or rhonchi. HEART/CARDIOVASCULAR: Regular in rate and rhythm. S1 and S2 positive. ABDOMEN: Abdomen is soft, nontender. Patient has normal bowel sounds. SKIN: There is no rash. Warm and dry. NEURO: No focal motor deficit. Follows command. MUSCULOSKELETAL: No joint effusion or tenderness. EXTRIMITY: No edema, no cyanosis or clubbing. PSYCH: Cooperative. Disposition: [id number]/TX-06 HOME UNDER HOME [facility] Time spent for discharge: 32 minutes Core Measure Documentation - Palliative Care Palliative Care/ Comfort Measures: Not Applicable - Core Measures Any of the following diagnoses?: none Exam - Constitutional Vitals: Temp Pulse Resp BP Pulse Ox 97.6 F 67 18 89/58 100 06/25/17 04:07 06/25/17 04:07 06/25/17 04:07 06/25/17 04:07 06/25/17 04:07 Plan Activity: fall precautions Weight Bearing Status: Non-Weight Bearing Diet: renal Special Instructions: home health RN Durable Medical Equipment Needed Upon Discharge: Walker-Rolling Follow up with: PRIMARY CARE, [Primary Care Provider] - 7 Days Prescriptions: Ciprofloxacin HCl [Ciprofloxacin TAB] 500 mg PO BID #7 tablet
[2017-06-25] MEDS ORDERED: NACL 0.9 (PRIMING MACHINE ONLY DIALYSIS) MC ONE (16:41)
[2017-06-25] MEDS: FLORINEF PO SCH ×2 (18:53→23:22)
[2017-06-25] MEDS: LATANOPROST 0.005% OU SCH (18:58)
[2017-06-25] MEDS: PRAVACHOL PO SCH (23:15)
[2017-06-25] MEDS: REMERON PO SCH (23:15)
[2017-06-26 05:30] LABS: Basophils % (Auto) 0.8 % (0.0-1.8); Eosinophils # (Auto) 0.3 K/mm3 (0.0-0.4); Eosinophils % (Auto) 5.5 % (0.0-4.3); Hematocrit 28.2 % (30.3-42.9); Hemoglobin 9.3 gm/dl (10.1-14.3); Lymphocytes # (Auto) 0.8 K/mm3 (1.2-5.4); Lymphocytes % (Auto) 16.3 % (13.4-35.0); Mean Corpuscular HGB Conc 33 % (30-34); Mean Corpuscular Hemoglobin 32 pg (28-32); Mean Corpuscular Volume 97 fl (79-97); Monocytes # (Auto) 0.3 K/mm3 (0.0-0.8); Monocytes % (Auto) 7.1 % (0.0-7.3); Platelet Count 180 K/mm3 (140-440)
[2017-06-26 05:52] LABS: Red Cell Distribution Width 23.9 % (13.2-15.2)
[2017-06-26 06:07] LABS: Calcium 7.7 mg/dL (8.4-10.2)
[2017-06-26] MEDS: PROAMATINE PO SCH ×2 (06:21→13:58)
--- NOTE | 2017-06-26 08:27 | Progress Note ---
Assessment and Plan Impression: * ESRD * UTI with sepsis * Dementia * HYpotension--chronic * IIDM * Anemia in ESRD Plan: * HD q MWF as hemodynamics allow * gentle ivfs * iv abx for urosepsis * strict i/os * renal diet * needs placement * follow lytes/[facility]c prn * Subjective Date of service: 06/26/17 Principal diagnosis: esrd Interval history: resting in bed Objective - Exam Narrative Exam: GENERAL: elderly female lying on bed appeared to be in no discomfort. HEENT: Normocephalic. Atraumatic. No conjunctival congestion or icterus. Patient has moist mucous membranes. NECK: Supple. Trachea midline. CHEST/LUNGS: Clear to auscultated bilaterally, breathing nonlabored. No wheezes crackles or rhonchi. HEART/CARDIOVASCULAR: Regular in rate and rhythm. S1 and S2 positive. ABDOMEN: Abdomen is soft, nontender. Patient has normal bowel sounds. SKIN: There is no rash. Warm and dry. NEURO: No focal motor deficit. Follows command. MUSCULOSKELETAL: No joint effusion or tenderness. EXTRIMITY: No edema, no cyanosis or clubbing. PSYCH: Cooperative - Vital Signs Vital signs: Vital Signs - 12hr 06/25/17 06/25/17 06/26/17 22:00 23:22 00:22 Temperature Pulse Rate Respiratory 20 18 20 Rate Blood Pressure O2 Sat by Pulse 97 Oximetry 06/26/17 06/26/17 06/26/17 01:56 01:59 06:18 Temperature 98.5 F Pulse Rate 86 76 Respiratory 18 18 Rate Blood Pressure 79/44 78/37 71/38 O2 Sat by Pulse 98 98 Oximetry - Lab 06/26/17 04:24 06/26/17 04:24 Most recent lab results Calcium 7.7 mg/dL (8.4-10.2) L 06/26/17 04:24 Magnesium 1.70 mg/dL (1.7-2.3) 06/23/17 18:31
[2017-06-26] MEDS: RENVELA PO SCH ×2 (08:29→11:45)
[2017-06-26] MEDS: PHOSLO PO SCH ×2 (08:29→11:45)
[2017-06-26 08:37] VITALS: BP 70/43
[2017-06-26] MEDS: HALFPRIN EC PO SCH (10:55)
[2017-06-26] MEDS: PEPCID PO SCH (10:55)
[2017-06-26] MEDS: SODIUM CHLORIDE FLUSH SYRINGE 10 ML IV SCH (10:55)
[2017-06-26] MEDS: FLORINEF PO SCH (10:55)
[2017-06-26] MEDS: cefTRIAXone 1 GM in NACL 0.9% 20 ML IV SCH (10:55)
--- NOTE | 2017-06-26 10:56 | Progress Note ---
Assessment and Plan Hypotension, possibly secondary to volume depletion - Start on low volume normal saline at 30 mL per hour - Continue home dose of midodrine and 10 mg every 8 hours End-stage renal disease -Nephrology consulted for dialysis, next Dialysis today Insulin-dependent diabetes mellitus type 2 - Continue consistent carbohydrate diet and insulin coverage Hyperlipidemia, continue simvastatin Anemia of chronic disease, likely from ESRD - Continue Epogen with dialysis GERD, continue PPI Elevated lactic acid, will trend lactate - Could be from hypotension - Does not appear to be septic, no source of infection at this point - Continue to monitor clinically, follow blood culture - Continue Rocephin for now until culture negative Dementia with debility, supportive care, pt will need placement DVT prophylaxis with heparin Brief history: Is a 71-year-old female with history of an sister of disease on dialysis, chronic hypotension on midodrine presented to the ER from the [facility] dialysis center after being dialyzed for 1 hour as patient noted to be hypotensive and she was complaining of generalized weakness. Radiological test: none Hospitalist Physical exam: GENERAL: elderly female lying on bed appeared to be in no discomfort. HEENT: Normocephalic. Atraumatic. No conjunctival congestion or icterus. Patient has moist mucous membranes. NECK: Supple. Trachea midline. CHEST/LUNGS: Clear to auscultated bilaterally, breathing nonlabored. No wheezes crackles or rhonchi. HEART/CARDIOVASCULAR: Regular in rate and rhythm. S1 and S2 positive. ABDOMEN: Abdomen is soft, nontender. Patient has normal bowel sounds. SKIN: There is no rash. Warm and dry. NEURO: No focal motor deficit. Follows command. MUSCULOSKELETAL: No joint effusion or tenderness. EXTRIMITY: No edema, no cyanosis or clubbing. PSYCH: Cooperative. Subjective Date of service: 06/25/17 Principal diagnosis: esrd Interval history: Patient seen and examined. Medical records and medication list reviewed. No acute event overnight noted by the RN. Patient denies any chest pain or difficulty breathing. Patient is tolerating diet. BP at mid 80s, plan for HD today Discussed plan of care at bedside with patient. she is nervous to go home, states she lives alone Objective - Constitutional Vitals: Vital Signs - 12hr 06/25/17 06/26/17 06/26/17 23:22 00:22 01:56 Temperature 98.5 F Pulse Rate 86 Respiratory 18 20 18 Rate Blood Pressure 79/44 O2 Sat by Pulse 98 Oximetry 06/26/17 06/26/17 06/26/17 01:59 06:18 07:29 Temperature 98.3 F Pulse Rate 76 87 Respiratory 18 20 Rate Blood Pressure 78/37 71/38 70/43 O2 Sat by Pulse 98 98 Oximetry - Labs CBC & Chem 7: 06/26/17 04:24 06/26/17 04:24 Labs: Abnormal lab results 06/26/17 06/26/17 Range/Units 04:24 04:24 RBC 2.90 L (3.65-5.03) M/mm3 Hgb 9.3 L (10.1-14.3) gm/dl Hct 28.2 L (30.3-42.9) % RDW 23.9 H (13.2-15.2) % Eos % (Auto) 5.5 H (0.0-4.3) % Lymph # 0.8 L (1.2-5.4) K/mm3 Seg Neutrophils % 70.3 H (40.0-70.0) % Sodium 135 L (137-145) mmol/L Creatinine 4.5 H (0.7-1.2) mg/dL Calcium 7.7 L (8.4-10.2) mg/dL
== END 2017-06-26 15:35 | DRG 871 ==
LOC: ED 16:13 → 2B-ACE 22:14
PROVIDERS: ADMIT Internal Medicine; ATTEND Internal Medicine
PROC: 5A1D70Z Performance of Urinary Filtration, Intermittent, Less than 6 Hours Per Day (ICD-10-PCS; principal; 2017-06-25)
DX: A41.9 Sepsis, unspecified organism (principal); N18.6 End stage renal disease; N39.0 Urinary tract infection, site not specified; I13.2 Hypertensive heart and chronic kidney disease with heart failure and with stage 5 chronic kidney disease, or end stage renal disease; I95.9 Hypotension, unspecified; E86.9 Volume depletion, unspecified; E11.22 Type 2 diabetes mellitus with diabetic chronic kidney disease; E78.5 Hyperlipidemia, unspecified; D63.1 Anemia in chronic kidney disease; K21.9 Gastro-esophageal reflux disease without esophagitis; E86.0 Dehydration; E87.6 Hypokalemia; E21.3 Hyperparathyroidism, unspecified; F03.90 Unspecified dementia, unspecified severity, without behavioral disturbance, psychotic disturbance, mood disturbance, and anxiety; Z99.2 Dependence on renal dialysis; Z79.4 Long term (current) use of insulin; Z79.82 Long term (current) use of aspirin; Z79.899 Other long term (current) drug therapy; Z88.0 Allergy status to penicillin; Z91.041 Radiographic dye allergy status; Z87.442 Personal history of urinary calculi; Z82.49 Family history of ischemic heart disease and other diseases of the circulatory system
CPT/HCPCS: 36415; 80048; 80053; 80320; 81001; 82140; 83735; 84484; 85007; 85025; 85610; 86850; 86900; 86901; 87040; 87086; 93005; 93010; 96365; A9270-GY; G0480; J0696; J0885; J2270; J3370; J7030